=== PATIENT | male | born 1975 | race Caucasian/White ===

== ENCOUNTER 2018-05-30 11:23 | Inpatient (IN) | payer SELFPAY ==
[2018-05-30 12:25] VITALS: BMI 21.2
--- NOTE | 2018-05-30 13:49 | HP ---
COWS - Scale Resting Pulse: 0= [place] 80 or Below Sweatin= Chills/Flushing Restless Observation: 3= Extraneous Movement Pupil Size: 1= Pupils >than Normal Bone or Joint Aches: 2= Severe Diffuse Aches Runny Nose/ Eye Tearin= Runny Nose/Eyes GI Upset > 30mins: 2= Nausea/Diarrhea Tremor Observation: 2= Slight Tremor Visible Yawning Observation: 1= 1-2x During Session Anxiety or Irritability: 2=Irritable/Anxious Goose Flesh Skin: 0=Smooth Skin COWS Score: 16 Admission ROS S - HPI Chief Complaint: i need help to stop using heroin,cocaine,marijuana Allergies/Adverse Reactions: Allergies Allergy/AdvReac Type Severity Reaction Status Date / Time No Known Allergies Allergy Verified 05/30/18 13:39 History of Present Illness: this 43 years old male with heroin,cocaine,marijuana dependence,seeking detox, withdrawal symptom,last treatment in 07/08 [facility] not completed multiple treatment in the past weight loss kidney stone on right s/p surgery in 2017 nicotine dependence no significant period of sobriety Exam Limitations: No Limitations - Ebola screening Have you traveled outside of the country in the last 21 days: No Have you had contact with anyone from an Ebola affected area: No Have you been sick,other than usual withdrawal symptoms: No Do you have a fever: No - Review of Systems Constitutional: Chills, Loss of Appetite, Malaise, Night Sweats, Changes in sleep, Weakness, Unintentional Wgt. Loss EENT: reports: Tearing, Nose Congestion Respiratory: reports: No Symptoms reported Cardiac: reports: No Symptoms Reported GI: reports: Diarrhea, Nausea, Vomiting, Indigestion, Abdominal cramping : reports: No Symptoms Reported Musculoskeletal: reports: Back Pain, Joint Pain, Muscle Pain Integumentary: reports: No Symptoms Reported, Dryness Neuro: reports: Headache, Tremors Endocrine: reports: No Symptoms Reported Hematology: reports: No Symptoms Reported Psychiatric: reports: No Sypmtoms Reported, Judgement Intact, Mood/Affect Appropiate, Orientated x3 Patient History - Patient Medical History Hx Anemia: No Hx Asthma: No Hx Chronic Obstructive Pulmonary Disease (COPD): No Hx Cancer: No Hx Cardiac Disorders: No Hx Congestive Heart Failure: No Hx Hypertension: No Hx Hypercholesterolemia: No Hx Pacemaker: No HX Cerebrovascular Accident: No Hx Seizures: No Hx Dementia: No Hx Diabetes: No Hx Gastrointestinal Disorders: No Hx Liver Disease: No Hx Genitourinary Disorders: No Hx Sexually Transmitted Disorders: No Hx Renal Disease (ESRD): No Hx Thyroid Disease: No Hx Human Immunodeficiency Virus (HIV): No (last 2014 negative) Hx Hepatitis C: No Hx Depression: No Hx Suicide Attempt: No Hx Bipolar Disorder: No Hx Schizophrenia: No Other Medical History: no suicidal,no homicidal - Patient Surgical History Past Surgical History: Yes Hx Genitourinary Surgery: Yes (kidney stone right) Anesthesia Reaction: No - PPD History Previous Implant?: Yes Documented Results: Negative w/o proof Implanted On Prior [facility] Admission?: Yes Date: 07/05/16 PPD to be Administered?: Yes - Smoking Cessation Smoking history: Current every day smoker Have you smoked in the past 12 months: Yes Aproximately how many cigarettes per day: 10 Hx Chewing Tobacco Use: No Initiated information on smoking cessation: Yes 'Breaking Loose' booklet given: 05/30/18 - Substance & Tx. History Hx Alcohol Use: No Hx Substance Use: Yes Substance Use Type: Heroin Hx Substance Use Treatment: Yes ([facility] in 07/08) - Substances Abused Heroin Route: Inhalation Frequency: Daily Amount used: 5 bags Age of first use: 29 Date of Last Use: 05/29/18 Marijuana/Hashish Route: Smoking Frequency: Daily Amount used: 2 joints Age of first use: 17 Date of Last Use: 05/29/18 Cocaine Route: Inhalation Frequency: 1-3 times last 30 days Amount used: $50 Age of first use: 20 Date of Last Use: 05/28/18 Family Disease History - Family Disease History Family History: Denies Admission Physical Exam S - Vital Signs Vital Signs: Vital Signs - 24 hr 05/30/18 12:21 Temperature 97 F L Pulse Rate 55 L Respiratory 17 Rate Blood Pressure 136/91 - Physical General Appearance: Yes: Moderate Distress, Tremorous, Irritable, Sweating, Anxious HEENTM: Yes: Normal ENT Inspection, ANNALEE, Pharynx Normal Respiratory: Yes: Lungs Clear, Normal Breath Sounds, No Respiratory Distress Neck: Yes: Within Normal Limits Breast: Yes: Within Normal Limits Cardiology: Yes: Regular Rhythm, Regular Rate, S1, S2 Abdominal: Yes: Normal Bowel Sounds, Non Tender, Flat, Soft Genitourinary: Yes: Within Normal Limits Back: Yes: Muscle Spasm Musculoskeletal: Yes: Back pain, Joint Stiffness, Muscle Pain Extremities: Yes: Tremors 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, Fully Oriented, Alert, Motor Strength 5/5 Integumentary: Yes: Dry Lymphatic: Yes: Within Normal Limits - Diagnostic (1) Opioid dependence with withdrawal Current Visit: No Status: Chronic (2) Weight loss Current Visit: No Status: Acute (3) Cannabis dependence Current Visit: No Status: Chronic (4) Cocaine dependence Current Visit: No Status: Chronic Qualifiers: Substance use status: uncomplicated Qualified Code(s): F14.20 - Cocaine dependence, uncomplicated (5) Nicotine dependence Current Visit: No Status: Chronic Qualifiers: Nicotine product type: cigarettes Substance use status: uncomplicated Qualified Code(s): F17.210 - Nicotine dependence, cigarettes, uncomplicated Cleared for Admission [facility] - Detox or Rehab [facility] Level of Care: Medically Managed Detox Regimen/Protocol: Methadone [facility] Breath Alcohol Content Breath Alcohol Content: 0 Urine Drug Screen - Results Drug Screen Negative: No Urine Drug Screen Results: THC-Marijuana, DARIAN-Cocaine, OPI-Opiates
[2018-05-30] MEDS ORDERED: ACETAMINOPHEN 325 MG TABLET (FP) PO PRN (13:59)
[2018-05-30] MEDS ORDERED: hydrOXYzine PAMOATE 25 MG CAPSULE (FP) PO PRN (13:59)
[2018-05-30] MEDS ORDERED: MAG HYDROX/AL HYDROX/SIMETH 30 ML UNIT-DOSE CUP PO PRN (13:59)
[2018-05-30] MEDS ORDERED: NICOTINE POLACRILEX 2 MG GUM BUC PRN (13:59)
[2018-05-30] MEDS ORDERED: MENTHOL/PHENOL 1 EACH UD MM PRN (13:59)
[2018-05-30] MEDS ORDERED: IBUPROFEN 400 MG TABLET (FP) PO PRN (13:59)
[2018-05-30] MEDS ORDERED: LOPERAMIDE HCL 2 MG CAPSULE PO PRN (13:59)
[2018-05-30] MEDS ORDERED: guaiFENesin/D-METHORPHAN HB 10 ML UNIT-DOSE CUPS PO PRN (13:59)
[2018-05-30] MEDS ORDERED: MAGNESIUM HYDROX 2400MG/30ML ORAL SUSPENSION 30 ML CUP PO PRN (13:59)
[2018-05-30] MEDS ORDERED: P-EPHED 60MG/TRIPROLIDI 2.5MG TABLET PO PRN (13:59)
[2018-05-30] MEDS ORDERED: MAGNESIUM CITRATE 300 ML BOTTLE PO PRN (13:59)
[2018-05-30] MEDS ORDERED: METHADONE HCL 10 MG TABLET (FOR DETOX USE ONLY) PO ONE ×2 (14:20→23:00)
[2018-05-30] MEDS: diazePAM 5 MG TABLET PO PRN ×2 (15:16→19:30)
[2018-05-30] MEDS: NICOTINE 21 MG/24 HOURS TOPICAL PATCH TD SCH (15:17)
[2018-05-30 17:48] LABS: URINE APPEARANCE CLEAR; URINE BILIRUBIN NEGATIVE (<2.0 mg/dL); URINE COLOR YELLOW; URINE GLUCOSE (UA) NEGATIVE (NEGATIVE); URINE KETONE NEGATIVE (NEGATIVE); URINE LEUK ESTERASE NEGATIVE (NEGATIVE); URINE NITRITE NEGATIVE (NEGATIVE); URINE PROTEIN NEGATIVE (NEGATIVE); URINE UROBILINOGEN NEGATIVE mg/dL (0.2-1.0)
[2018-05-30] MEDS: THIAMINE HCL 100 MG TABLET (FP) PO SCH (22:17)
[2018-05-30] MEDS: MELATONIN 5 MG TABLETS PO PRN (22:18)
[2018-05-31] MEDS: diazePAM 5 MG TABLET PO PRN ×4 (05:46→19:51)
[2018-05-31] MEDS ORDERED: METHADONE HCL 10 MG TABLET (FOR DETOX USE ONLY) PO ONE (10:00)
[2018-05-31] MEDS: NICOTINE 21 MG/24 HOURS TOPICAL PATCH TD SCH (10:27)
[2018-05-31] MEDS: PRENATAL VITAMINS W/ FOLIC ACID TABLET (FP) PO SCH (10:27)
[2018-05-31 11:19] LABS: HEMATOCRIT 43.4 % (35.4-49); HEMOGLOBIN 14.4 GM/dL (11.7-16.9); MCH 30.9 pg (25.7-33.7); MCHC 33.1 g/dl (32.0-35.9); MEAN CELL VOLUME 93.5 fl (80-96); MEAN PLT VOLUME 8.8 fl (7.5-11.1); PLATELET COUNT 262 K/MM3 (134-434); RBC 4.64 M/mm3 (4.00-5.60); RDW 13.4 % (11.9-15.9); WHITE BLOOD COUNT 8.9 K/mm3 (4.0-10.0)
[2018-05-31 11:23] LABS: ALBUMIN 4.1 g/dl (3.4-5.0); ALK PHOS 74 U/L (45-117); ANION GAP 5 MMOL/L (8-16); BILIRUBIN,TOTAL 0.3 mg/dL (0.2-1); BLOOD UREA NITROGEN 15 mg/dL (7-18); CALCIUM 9.7 mg/dL (8.5-10.1); CHLORIDE 107 mmol/L (98-107); CO2 29 mmol/L (21-32); GLUCOSE,RANDOM 76 mg/dL (74-106); POTASSIUM 5.3 mmol/L (3.5-5.1); SGOT/AST 16 U/L (15-37); SGPT/ALT 25 U/L (13-61); SODIUM 141 mmol/L (136-145); TOT PROT 7.8 g/dl (6.4-8.2)
--- NOTE | 2018-05-31 11:49 | EKG ---
Test Reason : Blood Pressure : / mmHG Vent. Rate : 047 BPM Atrial Rate : 047 BPM P-R Int : 150 ms QRS Dur : 098 ms QT Int : 464 ms P-R-T Axes : 054 052 071 degrees QTc Int : 410 ms SINUS BRADYCARDIA WITH SINUS ARRHYTHMIA OTHERWISE NORMAL ECG NO PREVIOUS ECGS AVAILABLE Confirmed by Ino Lucas MD ([id number]) on 05/31/2018 11:48:19 AM Referred By: Confirmed By:Ino Lucas MD
--- NOTE | 2018-05-31 15:37 | PN ---
[facility] COWS - Scale Resting Pulse: 0= [place] 80 or Below Sweatin= Chills/Flushing Restless Observation: 3= Extraneous Movement Pupil Size: 1= Pupils >than Normal Bone or Joint Aches: 2= Severe Diffuse Aches Runny Nose/ Eye Tearin= Runny Nose/Eyes GI Upset > 30mins: 3= Vomiting/Diarrhea Tremor Observation of Outstretched Hands: 2= Slight Tremor Visible Yawning Observation: 1= 1-2x During Session Anxiety or Irritability: 2=Irritable/Anxious Goose Flesh Skin: 0=Smooth Skin COWS Score: 17 S Progress Note (SOAP) Subjective: Chills, interrupted sleep, sweating Objective: 05/31/18 15:32 Last Vital Signs Temp Pulse Resp BP Pulse Ox 97.8 F 61 18 131/87 05/31/18 14:19 05/31/18 14:19 05/31/18 14:19 05/31/18 14:19 Laboratory Tests 05/30/18 05/31/18 05/31/18 15:30 06:00 06:00 WBC 8.9 RBC 4.64 Hgb 14.4 Hct 43.4 MCV 93.5 MCH 30.9 MCHC 33.1 RDW 13.4 Plt Count 262 MPV 8.8 Sodium 141 Potassium 5.3 H Chloride 107 Carbon Dioxide 29 Anion Gap 5 L BUN 15 Creatinine 1.0 Creat Clearance w eGFR > 60 Random Glucose 76 Calcium 9.7 Total Bilirubin 0.3 AST 16 ALT 25 Alkaline Phosphatase 74 Total Protein 7.8 Albumin 4.1 Urine Color Yellow Urine Appearance Clear Urine pH 6.0 Ur Specific [place] 1.024 Urine Protein Negative Urine Glucose (UA) Negative Urine Ketones Negative Urine Blood Negative Urine Nitrite Negative Urine Bilirubin Negative Urine Urobilinogen Negative Ur Leukocyte Esterase Negative RPR Titer 05/31/18 06:00 WBC RBC Hgb Hct MCV MCH MCHC RDW Plt Count MPV Sodium Potassium Chloride Carbon Dioxide Anion Gap BUN Creatinine Creat Clearance w eGFR Random Glucose Calcium Total Bilirubin AST ALT Alkaline Phosphatase Total Protein Albumin Urine Color Urine Appearance Urine pH Ur Specific [place] Urine Protein Urine Glucose (UA) Urine Ketones Urine Blood Urine Nitrite Urine Bilirubin Urine Urobilinogen Ur Leukocyte Esterase RPR Titer Nonreactive Labs reviewed: Rebekah 5.3 Assessment: 05/31/18 15:33 Withdrawal sxs Noted with mild hyperkalemia Plan: Continue detox Hyperkalemia: kayexalate 15g PO x 1 dose, repeat serum K level in AM
[2018-05-31] MEDS ORDERED: SODIUM POLYSTYRENE SULFONATE 15 GM/60 ML BOTTLE PO ONE (16:15)
[2018-05-31] MEDS: MELATONIN 5 MG TABLETS PO PRN (22:50)
[2018-05-31] MEDS: THIAMINE HCL 100 MG TABLET (FP) PO SCH (22:50)
[2018-06-01] MEDS: diazePAM 5 MG TABLET PO PRN ×3 (06:27→19:18)
[2018-06-01] MEDS: NICOTINE 21 MG/24 HOURS TOPICAL PATCH TD SCH (09:23)
[2018-06-01] MEDS: PRENATAL VITAMINS W/ FOLIC ACID TABLET (FP) PO SCH (09:32)
[2018-06-01] MEDS ORDERED: METHADONE HCL 5 MG TABLET (FOR DETOX USE ONLY) PO ONE (10:00)
--- NOTE | 2018-06-01 14:57 | PN ---
S COWS - Scale Resting Pulse: 1= [place] 81-100 Sweatin= Chills/Flushing Restless Observation: 3= Extraneous Movement Pupil Size: 0= Normal to Room Light Bone or Joint Aches: 2= Severe Diffuse Aches Runny Nose/ Eye Tearin= Runny Nose/Eyes GI Upset > 30mins: 2= Nausea/Diarrhea Tremor Observation of Outstretched Hands: 2= Slight Tremor Visible Yawning Observation: 1= 1-2x During Session Anxiety or Irritability: 1=Feels Anxious/Irritable Goose Flesh Skin: 0=Smooth Skin COWS Score: 15 S Progress Note (SOAP) Subjective: Anxious, sweating, interrupted sleep Objective: 06/01/18 14:54 Last Vital Signs Temp Pulse Resp BP Pulse Ox 97.8 F 84 18 136/89 06/01/18 13:39 06/01/18 13:39 06/01/18 13:39 06/01/18 13:39 Laboratory Tests 05/30/18 05/31/18 05/31/18 15:30 06:00 06:00 WBC 8.9 RBC 4.64 Hgb 14.4 Hct 43.4 MCV 93.5 MCH 30.9 MCHC 33.1 RDW 13.4 Plt Count 262 MPV 8.8 Sodium 141 Potassium 5.3 H Chloride 107 Carbon Dioxide 29 Anion Gap 5 L BUN 15 Creatinine 1.0 Creat Clearance w eGFR > 60 Random Glucose 76 Calcium 9.7 Total Bilirubin 0.3 AST 16 ALT 25 Alkaline Phosphatase 74 Total Protein 7.8 Albumin 4.1 Urine Color Yellow Urine Appearance Clear Urine pH 6.0 Ur Specific [place] 1.024 Urine Protein Negative Urine Glucose (UA) Negative Urine Ketones Negative Urine Blood Negative Urine Nitrite Negative Urine Bilirubin Negative Urine Urobilinogen Negative Ur Leukocyte Esterase Negative RPR Titer 05/31/18 06/01/18 06:00 07:30 WBC RBC Hgb Hct MCV MCH MCHC RDW Plt Count MPV Sodium Potassium 4.2 Chloride Carbon Dioxide Anion Gap BUN Creatinine Creat Clearance w eGFR Random Glucose Calcium Total Bilirubin AST ALT Alkaline Phosphatase Total Protein Albumin Urine Color Urine Appearance Urine pH Ur Specific [place] Urine Protein Urine Glucose (UA) Urine Ketones Urine Blood Urine Nitrite Urine Bilirubin Urine Urobilinogen Ur Leukocyte Esterase RPR Titer Nonreactive Labs reviewed: repeated K value 4.2 (was 5.3) Assessment: 06/01/18 14:55 Withdrawal sxs Plan: Continue detox Hyperkalemia resolved after kayexalate 15gm PO x 1 dose yesterday
[2018-06-01] MEDS: MELATONIN 5 MG TABLETS PO PRN (22:34)
[2018-06-01] MEDS: THIAMINE HCL 100 MG TABLET (FP) PO SCH (22:34)
[2018-06-02] MEDS: diazePAM 5 MG TABLET PO PRN ×2 (06:52→11:02)
[2018-06-02] MEDS ORDERED: METHADONE HCL 5 MG TABLET (FOR DETOX USE ONLY) PO ONE (10:00)
[2018-06-02] MEDS: NICOTINE 21 MG/24 HOURS TOPICAL PATCH TD SCH (10:43)
[2018-06-02] MEDS: PRENATAL VITAMINS W/ FOLIC ACID TABLET (FP) PO SCH (10:43)
[2018-06-02 13:18] VITALS: BP 133/91; PULSE 79; TEMP 96.7
--- NOTE | 2018-06-02 15:23 | DS ---
[facility] Detox Discharge Summary Admission Date: 05/30/18 Discharge Date: 06/02/18 - History Present History: Cannabis Dependence, Cocaine Dependence, Opioid Dependence Additional Comments: Patient encouraged to complete detox. Cytopathologist discussed with patient about adjusting his detox protocol so that he could leave tomorrow instead of leaving AMA today. As per patient, he has a job and he has to leave today and doesn't care. Patient stated he is feeling fine and doesn't have any withdrawal sxs. Patient instructed to proceed to ER stat if any withdrawal sxs and to follow up with his PCP within 3 days. Pertinent Past History: Denies - Physical Exam Results Vital Signs: Vital Signs Temperature 96.7 F L 06/02/18 13:17 Pulse Rate 79 06/02/18 13:17 Respiratory Rate 18 06/02/18 13:17 Blood Pressure 133/91 06/02/18 13:17 O2 Sat by Pulse Oximetry (%) Pertinent Admission Physical Exam Findings: Withdrawal sxs Laboratory Tests 05/30/18 05/31/18 05/31/18 15:30 06:00 06:00 WBC 8.9 RBC 4.64 Hgb 14.4 Hct 43.4 MCV 93.5 MCH 30.9 MCHC 33.1 RDW 13.4 Plt Count 262 MPV 8.8 Sodium 141 Potassium 5.3 H Chloride 107 Carbon Dioxide 29 Anion Gap 5 L BUN 15 Creatinine 1.0 Creat Clearance w eGFR > 60 Random Glucose 76 Calcium 9.7 Total Bilirubin 0.3 AST 16 ALT 25 Alkaline Phosphatase 74 Total Protein 7.8 Albumin 4.1 Urine Color Yellow Urine Appearance Clear Urine pH 6.0 Ur Specific [place] 1.024 Urine Protein Negative Urine Glucose (UA) Negative Urine Ketones Negative Urine Blood Negative Urine Nitrite Negative Urine Bilirubin Negative Urine Urobilinogen Negative Ur Leukocyte Esterase Negative RPR Titer 05/31/18 06/01/18 06:00 07:30 WBC RBC Hgb Hct MCV MCH MCHC RDW Plt Count MPV Sodium Potassium 4.2 Chloride Carbon Dioxide Anion Gap BUN Creatinine Creat Clearance w eGFR Random Glucose Calcium Total Bilirubin AST ALT Alkaline Phosphatase Total Protein Albumin Urine Color Urine Appearance Urine pH Ur Specific [place] Urine Protein Urine Glucose (UA) Urine Ketones Urine Blood Urine Nitrite Urine Bilirubin Urine Urobilinogen Ur Leukocyte Esterase RPR Titer Nonreactive Labs reviewed - Treatment Hospital Course: Detox Protocol Followed, Detoxed Safely, Responded well, Discharged Condition Good - Medication Discharge Medications: Ambulatory Orders NK [No Known Home Medication] 07/03/16 - Diagnosis (1) Cannabis dependence Status: Chronic (2) Cocaine dependence Status: Chronic Qualifiers: Substance use status: uncomplicated Qualified Code(s): F14.20 - Cocaine dependence, uncomplicated (3) Nicotine dependence Status: Chronic Qualifiers: Nicotine product type: cigarettes Substance use status: uncomplicated Qualified Code(s): F17.210 - Nicotine dependence, cigarettes, uncomplicated (4) Opioid dependence with withdrawal Status: Acute - AMA Did Patient Leave Against Medical Advice: Yes (F/U with your PCP within 1-2 weeks)
[2018-06-03] MEDS ORDERED: METHADONE HCL 10 MG TABLET (FOR DETOX USE ONLY) PO ONE (10:00)
[2018-06-04] MEDS ORDERED: METHADONE HCL 5 MG TABLET (FOR DETOX USE ONLY) PO ONE (06:00)
== END 2018-06-02 13:59 | disposition left against medical advice (07) | DRG 770 ==
LOC: YASAS 11:23 → Y6N 13:58 → Y3N 14:52
PROC: HZ2ZZZZ Detoxification Services for Substance Abuse Treatment (ICD-10-PCS; principal; 2018-05-30)
DX: F11.23 Opioid dependence with withdrawal (principal); F14.20 Cocaine dependence, uncomplicated; F12.20 Cannabis dependence, uncomplicated; F17.210 Nicotine dependence, cigarettes, uncomplicated; E87.5 Hyperkalemia; Z87.898 Personal history of other specified conditions; Z59.0 Homelessness
CPT/HCPCS: 36415; 80053; 81003; 84132; 85027; 86593; 93005; 93010

== ENCOUNTER 2018-12-18 10:37 | Inpatient (IN) | payer OTHER ==
[2018-12-18 12:48] VITALS: BMI 23.7
--- NOTE | 2018-12-18 15:52 | HP ---
COWS - Scale Resting Pulse: 0= [place] 80 or Below Sweatin= Chills/Flushing Restless Observation: 3= Extraneous Movement Pupil Size: 1= Pupils >than Normal Bone or Joint Aches: 2= Severe Diffuse Aches Runny Nose/ Eye Tearin= Runny Nose/Eyes GI Upset > 30mins: 2= Nausea/Diarrhea Tremor Observation: 2= Slight Tremor Visible Yawning Observation: 2= >3x During Session Anxiety or Irritability: 2=Irritable/Anxious Goose Flesh Skin: 0=Smooth Skin COWS Score: 17 CIWA Score - Admission Criteria [facility] Guidelines: Admission for Medically Managed Detox: Requires at least one of the followin. CIWA greater than 12 2. Seizures within the past 24 hours 3. Delirium tremens within the past 24 hours 4. Hallucinations within the past 24 hours 5. Acute intervention needed for co occurring medical disorder 6. Acute intervention needed for co occurring psychiatric disorder 7. Severe withdrawal that cannot be handled at a lower level of care (continued vomiting, continued diarrhea, abnormal vital signs) requiring intravenous medication and/or fluids 8. Admission ROS [facility] Chief Complaint: i need help to stop using heroin,cocaine and marijuana Allergies/Adverse Reactions: Allergies Allergy/AdvReac Type Severity Reaction Status Date / Time No Known Allergies Allergy Verified 12/18/18 12:43 History of Present Illness: this 43 years old with heroin,cocaine and marijuana dependence,seeking detox, withdrawal symptom multiple admissions in the past,last [facility] 05/30/13 to 06/02/18 not cpmpleted nicotine dependence 1/2 pack weight loss longest period of sobriety 8 months plan for out patient program and back to work Exam Limitations: No Limitations - Ebola screening Have you traveled outside of the country in the last 21 days: No (N) Have you had contact with anyone from an Ebola affected area: No Do you have a fever: No - Review of Systems Constitutional: Chills, Loss of Appetite, Malaise, Night Sweats, Changes in sleep, Weakness, Unintentional Wgt. Loss EENT: reports: Tearing, Nose Congestion Respiratory: reports: No Symptoms reported Cardiac: reports: No Symptoms Reported GI: reports: Nausea, Poor Appetite, Indigestion, Abdominal cramping : reports: No Symptoms Reported Musculoskeletal: reports: Back Pain, Muscle Pain Neuro: reports: Headache, Tremors Endocrine: reports: No Symptoms Reported Hematology: reports: No Symptoms Reported Psychiatric: reports: No Sypmtoms Reported, Judgement Intact, Mood/Affect Appropiate, Orientated x3 Other Systems: Reviewed and Negative Patient History - Patient Medical History Hx Anemia: No Hx Asthma: No Hx Chronic Obstructive Pulmonary Disease (COPD): No Hx Cancer: No Hx Cardiac Disorders: No Hx Congestive Heart Failure: No Hx Hypertension: No Hx Hypercholesterolemia: No Hx Pacemaker: No HX Cerebrovascular Accident: No Hx Seizures: No Hx Dementia: No Hx Diabetes: No Hx Gastrointestinal Disorders: No Hx Liver Disease: No Hx Genitourinary Disorders: No Hx Sexually Transmitted Disorders: No Hx Renal Disease (ESRD): No Hx Thyroid Disease: No Hx Human Immunodeficiency Virus (HIV): No (last 2014 negative) Hx Hepatitis C: No Hx Depression: No Hx Suicide Attempt: No (DENIES) Hx Bipolar Disorder: No Hx Schizophrenia: No Other Medical History: no suicidal,no homicidal - Patient Surgical History Past Surgical History: Yes Hx Neurologic Surgery: No Hx Cataract Extraction: No Hx Cardiac Surgery: No Hx Lung Surgery: No Hx Breast Surgery: No Hx Breast Biopsy: No Hx Abdominal Surgery: No Hx Appendectomy: No Hx Cholecystectomy: No Hx Genitourinary Surgery: Yes (kidney stone right in 2016) Hx Section: No Hx Orthopedic Surgery: No Anesthesia Reaction: No - PPD History Previous Implant?: Yes Documented Results: Negative w/proof Implanted On Prior R Admission?: Yes Date: 06/01/18 Results: 0MM - Reproductive History Patient : No - Smoking Cessation Smoking history: Current every day smoker Have you smoked in the past 12 months: Yes Aproximately how many cigarettes per day: 10 Hx Chewing Tobacco Use: No Initiated information on smoking cessation: Yes 'Breaking Loose' booklet given: 12/18/18 - Substance & Tx. History Hx Alcohol Use: No Hx Substance Use: Yes Substance Use Type: Cocaine, Heroin, Marijuana Hx Substance Use Treatment: Yes ([facility] 05/30/18 to 06/02/18 not completed) - Substances abused Heroin Substance route: Inhalation Frequency: Daily Amount used: 1-5 BAGS Age of first use: 29 Date of last use: 12/17/18 Cocaine Other (specify): sniff Frequency: 1-2 times per week Amount used: 20$ Age of first use: 20 Date of last use: 12/16/18 Marijuana/Hashish Substance route: Smoking Frequency: Daily Amount used: 10& Age of first use: 17 Date of last use: 12/18/18 Family Disease History - Family Disease History Family History: Denies Admission Physical Exam [facility] - Vital Signs Vital Signs: Vital Signs - 24 hr 12/18/18 12/18/18 12/18/18 12:44 13:27 15:15 Temperature 97.6 F 97.6 F 97.6 F Pulse Rate 69 69 69 Respiratory 20 20 20 Rate Blood Pressure 133/81 133/81 133/81 - Physical General Appearance: Yes: Moderate Distress, Tremorous, Irritable, Sweating, Anxious HEENTM: Yes: Normal ENT Inspection, ANNALEE, Pharynx Normal Respiratory: Yes: Lungs Clear, Normal Breath Sounds, No Respiratory Distress Neck: Yes: Within Normal Limits, Supple, Trachea in good position Breast: Yes: Within Normal Limits Cardiology: Yes: Within Normal Limits, Regular Rhythm, Regular Rate, S1, S2 Abdominal: Yes: Within Normal Limits, Normal Bowel Sounds, Non Tender, Soft Genitourinary: Yes: Within Normal Limits, Other (scar of right lumbar area) Back: Yes: Muscle Spasm Musculoskeletal: Yes: full range of Motion, Back pain, Muscle Pain Extremities: Yes: Tremors Neurological: Yes: Within Normal Limits, Alert, Motor Strength 5/5 Integumentary: Yes: Dry Lymphatic: Yes: Within Normal Limits - Diagnostic (1) Opioid dependence with withdrawal Current Visit: No Status: Acute (2) Weight loss Current Visit: No Status: Acute (3) Cannabis dependence Current Visit: No Status: Chronic (4) Cocaine dependence Current Visit: No Status: Chronic Qualifiers: Substance use status: uncomplicated Qualified Code(s): F14.20 - Cocaine dependence, uncomplicated (5) Nicotine dependence Current Visit: No Status: Chronic Qualifiers: Nicotine product type: cigarettes Substance use status: uncomplicated Qualified Code(s): F17.210 - Nicotine dependence, cigarettes, uncomplicated (6) Kidney stone on right side Current Visit: Yes Status: Acute Cleared for Admission [facility] - Detox or Rehab [facility] Level of Care: Medically Managed Detox Regimen/Protocol: Methadone Breathalyzer - Breathalyzer Breathalyzer: 0 Urine Drug Screen - Test Device Lot number: [id number] Expiration date: 07/22/20 - Control Is test valid?: Yes - Results Drug screen NEGATIVE: No Urine drug screen results: THC-Marijuana, DARIAN-Cocaine, FEN-Fentanyl, MOP-Opiates Inpatient Rehab Admission - Rehab Decision to Admit Inpatient rehab admission?: No
[2018-12-18] MEDS ORDERED: MAG HYDROX/AL HYDROX/SIMETH 30 ML UNIT-DOSE CUP PO PRN (15:57)
[2018-12-18] MEDS ORDERED: IBUPROFEN 400 MG TABLET (FP) PO PRN (15:57)
[2018-12-18] MEDS ORDERED: METHOCARBAMOL 500 MG TABLET PO PRN (15:57)
[2018-12-18] MEDS ORDERED: BISMUTH SUBSALICYLATE 524 MG/30 ML UD PO PRN (15:57)
[2018-12-18] MEDS ORDERED: MAGNESIUM HYDROX 2400MG/30ML ORAL SUSPENSION 30 ML CUP PO PRN (15:57)
[2018-12-18] MEDS ORDERED: MENTHOL/PHENOL 1 EACH UD MM PRN (15:57)
[2018-12-18] MEDS ORDERED: MAGNESIUM CITRATE 300 ML BOTTLE PO PRN (15:57)
[2018-12-18] MEDS ORDERED: hydrOXYzine PAMOATE 25 MG CAPSULE (FP) PO PRN (15:57)
[2018-12-18] MEDS ORDERED: ACETAMINOPHEN 325 MG TABLET (FP) PO PRN ×2 (15:57)
[2018-12-18] MEDS ORDERED: METHADONE HCL 10 MG TABLET (FOR DETOX USE ONLY) PO ONE ×2 (16:01→23:00)
[2018-12-18] MEDS: NICOTINE 21 MG/24 HOURS TOPICAL PATCH TD SCH (16:45)
[2018-12-18] MEDS: diazePAM 5 MG TABLET PO PRN ×2 (16:45→22:05)
[2018-12-18] MEDS: THIAMINE HCL 100 MG TABLET (FP) PO SCH (22:05)
[2018-12-18] MEDS: MELATONIN 5 MG TABLETS PO PRN (22:07)
[2018-12-19 03:20] LABS: PH,URINE 5.5 (5.0-8.0); URINE APPEARANCE CLEAR; URINE BILIRUBIN NEGATIVE (NEGATIVE); URINE COLOR YELLOW; URINE GLUCOSE (UA) NEGATIVE (NEGATIVE); URINE KETONE NEGATIVE (NEGATIVE); URINE LEUK ESTERASE NEGATIVE (NEGATIVE); URINE NITRITE NEGATIVE (NEGATIVE); URINE PROTEIN NEGATIVE (NEGATIVE); URINE UROBILINOGEN 0.2 mg/dL (0.2-1.0)
[2018-12-19] MEDS: diazePAM 5 MG TABLET PO PRN ×5 (05:48→23:18)
--- NOTE | 2018-12-19 09:47 | PN ---
[facility] COWS - Scale Resting Pulse: 1= [place] 81-100 Sweatin= Chills/Flushing Restless Observation: 1= Difficult to Sit Still Pupil Size: 1= Pupils >than Normal Bone or Joint Aches: 1= Mild Discomfort Runny Nose/ Eye Tearin= Nasal Congestion GI Upset > 30mins: 2= Nausea/Diarrhea Tremor Observation of Outstretched Hands: 1= Tremor [place], Not Seen Yawning Observation: 1= 1-2x During Session Anxiety or Irritability: 1=Feels Anxious/Irritable Goose Flesh Skin: 3=Piloerection COWS Score: 14 S Progress Note (SOAP) Subjective: limited toleration to food and fluid trouble sleep at night restlessness ensure 120 ml bid Objective: 12/19/18 09:45 Vital Signs Temperature 96.7 F L 12/19/18 09:14 Pulse Rate 85 12/19/18 09:14 Respiratory Rate 18 12/19/18 09:14 Blood Pressure 131/84 12/19/18 09:14 O2 Sat by Pulse Oximetry (%) Laboratory Last Values Urine Color Yellow 12/18/18 22:58 Urine Appearance Clear 12/18/18 22:58 Urine pH 5.5 (5.0-8.0) 12/18/18 22:58 Ur Specific [place] 1.015 (1.010-1.035) 12/18/18 22:58 Urine Protein Negative (NEGATIVE) 12/18/18 22:58 Urine Glucose (UA) Negative (NEGATIVE) 12/18/18 22:58 Urine Ketones Negative (NEGATIVE) 12/18/18 22:58 Urine Blood Negative (NEGATIVE) 12/18/18 22:58 Urine Nitrite Negative (NEGATIVE) 12/18/18 22:58 Urine Bilirubin Negative (NEGATIVE) 12/18/18 22:58 Urine Urobilinogen 0.2 mg/dL (0.2-1.0) 12/18/18 22:58 Ur Leukocyte Esterase Negative (NEGATIVE) 12/18/18 22:58 lab noted Assessment: 12/19/18 09:46 opiate withdrawal sx Plan: continue detox
[2018-12-19] MEDS ORDERED: METHADONE HCL 5 MG TABLET (FOR DETOX USE ONLY) PO ONE (10:00)
[2018-12-19 10:07] LABS: ALBUMIN 3.4 g/dl (3.4-5.0); ALK PHOS 69 U/L (45-117); ANION GAP 5 MMOL/L (8-16); BILIRUBIN,TOTAL 0.2 mg/dL (0.2-1); BLOOD UREA NITROGEN 13 mg/dL (7-18); CALCIUM 8.5 mg/dL (8.5-10.1); CHLORIDE 108 mmol/L (98-107); CO2 28 mmol/L (21-32); CREATININE 0.9 mg/dL (0.55-1.3); GLUCOSE,RANDOM 86 mg/dL (74-106); POTASSIUM 4.4 mmol/L (3.5-5.1); SGOT/AST 9 U/L (15-37); SGPT/ALT 18 U/L (13-61); SODIUM 141 mmol/L (136-145); TOT PROT 6.5 g/dl (6.4-8.2)
[2018-12-19] MEDS: NICOTINE 21 MG/24 HOURS TOPICAL PATCH TD SCH (10:15)
[2018-12-19] MEDS: cloNIDine HCL 0.1 MG TABLET PO PRN ×2 (10:16→23:18)
[2018-12-19] MEDS: NICOTINE POLACRILEX 2 MG GUM BUC PRN ×4 (10:17→23:19)
[2018-12-19] MEDS: PRENATAL VITAMINS W/ FOLIC ACID TABLET (FP) PO SCH (10:17)
[2018-12-19 10:31] LABS: HEMATOCRIT 40.3 % (35.4-49); HEMOGLOBIN 14.1 GM/dL (11.7-16.9); MCHC 34.9 g/dl (32.0-35.9); MEAN CELL VOLUME 94.5 fl (80-96); MEAN PLT VOLUME 8.9 fl (7.5-11.1); PLATELET COUNT 250 K/MM3 (134-434); RBC 4.26 M/mm3 (4.00-5.60); RDW 13.3 % (11.9-15.9); WHITE BLOOD COUNT 6.8 K/mm3 (4.0-10.0)
[2018-12-19] MEDS: THIAMINE HCL 100 MG TABLET (FP) PO SCH (23:14)
[2018-12-19] MEDS: MELATONIN 5 MG TABLETS PO PRN (23:18)
[2018-12-20] MEDS ORDERED: METHADONE HCL 10 MG TABLET (FOR DETOX USE ONLY) PO ONE (10:00)
[2018-12-20] MEDS: diazePAM 5 MG TABLET PO PRN (10:25)
[2018-12-20] MEDS: NICOTINE 21 MG/24 HOURS TOPICAL PATCH TD SCH (10:26)
[2018-12-20] MEDS: NICOTINE POLACRILEX 2 MG GUM BUC PRN (10:26)
[2018-12-20] MEDS: PRENATAL VITAMINS W/ FOLIC ACID TABLET (FP) PO SCH (10:26)
--- NOTE | 2018-12-20 11:56 | PN ---
BHS COWS - Scale Resting Pulse: 0= [place] 80 or Below Sweatin= Chills/Flushing Restless Observation: 0= Sits Still Pupil Size: 0= Normal to Room Light Bone or Joint Aches: 1= Mild Discomfort Runny Nose/ Eye Tearin= Nasal Congestion GI Upset > 30mins: 1= Stomach Cramp Tremor Observation of Outstretched Hands: 1= Tremor [place], Not Seen Yawning Observation: 2= >3x During Session Anxiety or Irritability: 1=Feels Anxious/Irritable Goose Flesh Skin: 0=Smooth Skin COWS Score: 8 BHS Progress Note (SOAP) Subjective: patient reporting that he is going back to work tomorrow and his is living with his parents both are supportive to him patient wants to go to out patient rehab facility for better coping toward addiction discuss methadone and suboxone maintenance program patient "I do not think so" patient wants to "cut everything away" Objective: 12/20/18 13:02 Vital Signs Temperature 97 F L 12/20/18 09:15 Pulse Rate 73 12/20/18 09:15 Respiratory Rate 18 12/20/18 09:15 Blood Pressure 124/83 12/20/18 09:15 O2 Sat by Pulse Oximetry (%) Laboratory Last Values WBC 6.8 K/mm3 (4.0-10.0) 12/19/18 07:00 RBC 4.26 M/mm3 (4.00-5.60) 12/19/18 07:00 Hgb 14.1 GM/dL (11.7-16.9) 12/19/18 07:00 Hct 40.3 % (35.4-49) 12/19/18 07:00 MCV 94.5 fl (80-96) 12/19/18 07:00 MCH 33.0 pg (25.7-33.7) 12/19/18 07:00 MCHC 34.9 g/dl (32.0-35.9) 12/19/18 07:00 RDW 13.3 % (11.9-15.9) 12/19/18 07:00 Plt Count 250 K/MM3 (134-434) 12/19/18 07:00 MPV 8.9 fl (7.5-11.1) 12/19/18 07:00 Sodium 141 mmol/L (136-145) 12/19/18 07:00 Potassium 4.4 mmol/L (3.5-5.1) 12/19/18 07:00 Chloride 108 mmol/L (98-107) H 12/19/18 07:00 Carbon Dioxide 28 mmol/L (21-32) 12/19/18 07:00 Anion Gap 5 MMOL/L (8-16) L 12/19/18 07:00 BUN 13 mg/dL (7-18) 12/19/18 07:00 Creatinine 0.9 mg/dL (0.55-1.3) 12/19/18 07:00 Creat Clearance w eGFR 91.67 (>60) 12/19/18 07:00 Random Glucose 86 mg/dL (74-106) 12/19/18 07:00 Calcium 8.5 mg/dL (8.5-10.1) 12/19/18 07:00 Total Bilirubin 0.2 mg/dL (0.2-1) 12/19/18 07:00 AST 9 U/L (15-37) L 12/19/18 07:00 ALT 18 U/L (13-61) 12/19/18 07:00 Alkaline Phosphatase 69 U/L (45-117) 12/19/18 07:00 Total Protein 6.5 g/dl (6.4-8.2) 12/19/18 07:00 Albumin 3.4 g/dl (3.4-5.0) 12/19/18 07:00 Urine Color Yellow 12/18/18 22:58 Urine Appearance Clear 12/18/18 22:58 Urine pH 5.5 (5.0-8.0) 12/18/18 22:58 Ur Specific [place] 1.015 (1.010-1.035) 12/18/18 22:58 Urine Protein Negative (NEGATIVE) 12/18/18 22:58 Urine Glucose (UA) Negative (NEGATIVE) 12/18/18 22:58 Urine Ketones Negative (NEGATIVE) 12/18/18 22:58 Urine Blood Negative (NEGATIVE) 12/18/18 22:58 Urine Nitrite Negative (NEGATIVE) 12/18/18 22:58 Urine Bilirubin Negative (NEGATIVE) 12/18/18 22:58 Urine Urobilinogen 0.2 mg/dL (0.2-1.0) 12/18/18 22:58 Ur Leukocyte Esterase Negative (NEGATIVE) 12/18/18 22:58 RPR Titer Nonreactive (NONREACTIVE) 12/19/18 07:00 HIV 1&2 Antibody Screen Negative 12/19/18 07:00 HIV P24 Antigen Negative 12/19/18 07:00 lab noted Assessment: 12/20/18 13:02 opiate withdrawal sx Plan: continue detox
[2018-12-20 14:07] VITALS: BP 128/90; PULSE 98; TEMP 98.3
--- NOTE | 2018-12-20 14:44 | DS ---
[facility] Detox Discharge Summary Admission Date: 12/18/18 Discharge Date: 12/20/18 - History Present History: Opioid Dependence Additional Comments: 43 years old male admitted on 12/18/18 for opiate withdrawal stabilization after napping and lunch feeling better wants to return home to his parents and begin to work tomorrow alert no acute distress denies suicidal ideation patient does not want to consider methadone nor suboxone program discuss narcan kit "no I do not need that" Pertinent Past History: bring in medication list and lab report to aftercare appointment strong recommend to the patient not to leave with [id number] together patient choose to leave with [id number] - Physical Exam Results Vital Signs: Vital Signs Temperature 98.3 F 12/20/18 14:05 Pulse Rate 98 H 12/20/18 14:05 Respiratory Rate 18 12/20/18 14:05 Blood Pressure 128/90 12/20/18 14:05 O2 Sat by Pulse Oximetry (%) Pertinent Admission Physical Exam Findings: opiate withdrawal sx Laboratory Last Values WBC 6.8 K/mm3 (4.0-10.0) 12/19/18 07:00 RBC 4.26 M/mm3 (4.00-5.60) 12/19/18 07:00 Hgb 14.1 GM/dL (11.7-16.9) 12/19/18 07:00 Hct 40.3 % (35.4-49) 12/19/18 07:00 MCV 94.5 fl (80-96) 12/19/18 07:00 MCH 33.0 pg (25.7-33.7) 12/19/18 07:00 MCHC 34.9 g/dl (32.0-35.9) 12/19/18 07:00 RDW 13.3 % (11.9-15.9) 12/19/18 07:00 Plt Count 250 K/MM3 (134-434) 12/19/18 07:00 MPV 8.9 fl (7.5-11.1) 12/19/18 07:00 Sodium 141 mmol/L (136-145) 12/19/18 07:00 Potassium 4.4 mmol/L (3.5-5.1) 12/19/18 07:00 Chloride 108 mmol/L (98-107) H 12/19/18 07:00 Carbon Dioxide 28 mmol/L (21-32) 12/19/18 07:00 Anion Gap 5 MMOL/L (8-16) L 12/19/18 07:00 BUN 13 mg/dL (7-18) 12/19/18 07:00 Creatinine 0.9 mg/dL (0.55-1.3) 12/19/18 07:00 Creat Clearance w eGFR 91.67 (>60) 12/19/18 07:00 Random Glucose 86 mg/dL (74-106) 12/19/18 07:00 Calcium 8.5 mg/dL (8.5-10.1) 12/19/18 07:00 Total Bilirubin 0.2 mg/dL (0.2-1) 12/19/18 07:00 AST 9 U/L (15-37) L 12/19/18 07:00 ALT 18 U/L (13-61) 12/19/18 07:00 Alkaline Phosphatase 69 U/L (45-117) 12/19/18 07:00 Total Protein 6.5 g/dl (6.4-8.2) 12/19/18 07:00 Albumin 3.4 g/dl (3.4-5.0) 12/19/18 07:00 Urine Color Yellow 12/18/18 22:58 Urine Appearance Clear 12/18/18 22:58 Urine pH 5.5 (5.0-8.0) 12/18/18 22:58 Ur Specific [place] 1.015 (1.010-1.035) 12/18/18 22:58 Urine Protein Negative (NEGATIVE) 12/18/18 22:58 Urine Glucose (UA) Negative (NEGATIVE) 12/18/18 22:58 Urine Ketones Negative (NEGATIVE) 12/18/18 22:58 Urine Blood Negative (NEGATIVE) 12/18/18 22:58 Urine Nitrite Negative (NEGATIVE) 12/18/18 22:58 Urine Bilirubin Negative (NEGATIVE) 12/18/18 22:58 Urine Urobilinogen 0.2 mg/dL (0.2-1.0) 12/18/18 22:58 Ur Leukocyte Esterase Negative (NEGATIVE) 12/18/18 22:58 RPR Titer Nonreactive (NONREACTIVE) 12/19/18 07:00 HIV 1&2 Antibody Screen Negative 12/19/18 07:00 HIV P24 Antigen Negative 12/19/18 07:00 lab noted - Treatment Hospital Course: Detox Protocol Followed, Detoxed Safely, Responded well, Discharged Condition Good, Rehab Referral Accepted Patient has Accepted a Rehab Referral to: opiate out patient facility - Medication Discharge Medications: Ambulatory Orders Naloxone HCl [Narcan] 4 mg NS ASDIR PRN #1 spray 12/20/18 - Diagnosis (1) Opioid dependence with withdrawal Current Visit: Yes Status: Acute (2) Weight loss Current Visit: Yes Status: Acute (3) Nicotine dependence Current Visit: Yes Status: Acute Qualifiers: Nicotine product type: cigarettes Substance use status: in withdrawal Qualified Code(s): F17.213 - Nicotine dependence, cigarettes, with withdrawal - AMA Did Patient Leave Against Medical Advice: No
[2018-12-21] MEDS ORDERED: METHADONE HCL 5 MG TABLET (FOR DETOX USE ONLY) PO ONE (06:00)
== END 2018-12-20 02:47 | disposition home or self-care (01) | DRG 773 ==
LOC: YASAS 10:37 → Y3N 15:59
PROVIDERS: ADMIT Surgery; ATTEND Surgery
PROC: HZ2ZZZZ Detoxification Services for Substance Abuse Treatment (ICD-10-PCS; principal; 2018-12-18)
DX: F11.23 Opioid dependence with withdrawal (principal); F14.20 Cocaine dependence, uncomplicated; F12.20 Cannabis dependence, uncomplicated; F17.223 Nicotine dependence, chewing tobacco, with withdrawal; N20.0 Calculus of kidney; R63.4 Abnormal weight loss; Z68.23 Body mass index [BMI] 23.0-23.9, adult; Z59.0 Homelessness
CPT/HCPCS: 36415; 80053; 81003; 85027; 86593; 87389; J0735

== ENCOUNTER 2019-01-03 09:23 | Inpatient (IN) | payer OTHER ==
[2019-01-03 09:49] VITALS: BMI 24.0
--- NOTE | 2019-01-03 11:09 | HP ---
COWS - Scale Resting Pulse: 0= [place] 80 or Below Sweatin= Chills/Flushing Restless Observation: 0= Sits Still Pupil Size: 0= Normal to Room Light Bone or Joint Aches: 1= Mild Discomfort Runny Nose/ Eye Tearin= Runny Nose/Eyes GI Upset > 30mins: 0= None Tremor Observation: 0= None Yawning Observation: 0= None Anxiety or Irritability: 2=Irritable/Anxious Goose Flesh Skin: 0=Smooth Skin COWS Score: 6 CIWA Score - Admission Criteria OASAS Guidelines: Admission for Medically Managed Detox: Requires at least one of the followin. CIWA greater than 12 2. Seizures within the past 24 hours 3. Delirium tremens within the past 24 hours 4. Hallucinations within the past 24 hours 5. Acute intervention needed for co occurring medical disorder 6. Acute intervention needed for co occurring psychiatric disorder 7. Severe withdrawal that cannot be handled at a lower level of care (continued vomiting, continued diarrhea, abnormal vital signs) requiring intravenous medication and/or fluids 8. Admission ROS [facility] Allergies/Adverse Reactions: Allergies Allergy/AdvReac Type Severity Reaction Status Date / Time No Known Allergies Allergy Verified 01/03/19 09:44 History of Present Illness: pt here requesting detox from heroin use , reports 1-5 bags/day via inhalation , denies IVDU , reports use x 14 years , longest sobriety 8 months while staying w/ parents in [place] , most recent relapse since d/c from this facility 2 weeks ago , denies OD , latest use last night around 5-6 pm, current symptoms as above . MMTP - 2 years ago at [facility] , highest 60 mg , stopped going " I didn't like it , I don't like methadone " , planning to go to outpt after d/c . cannabis - daily since age 17 cocaine - weekly since age 20 , 20 $ , denies IVDU benzo - denies use pmhx : denies PSHx : r kidney stones psych : denies , denies current SI / HI tobacco : 1/2 ppd , interested in smoking cessation SHx : homeless , finances habit through family and p/t work as golf range attendant , denies current legal issues . Exam Limitations: Clinical Condition - Ebola screening Have you traveled outside of the country in the last 21 days: No (N) Have you had contact with anyone from an Ebola affected area: No Do you have a fever: No - Review of Systems Constitutional: See HPI EENT: reports: Nose Congestion Respiratory: reports: No Symptoms reported Cardiac: reports: No Symptoms Reported GI: reports: No Symptoms Reported : reports: No Symptoms Reported Musculoskeletal: reports: See HPI Integumentary: reports: No Symptoms Reported Neuro: reports: No Symptoms reported Endocrine: reports: No Symptoms Reported Psychiatric: reports: Orientated x3, Anxious Patient History - Patient Medical History Hx Anemia: No Hx Asthma: No Hx Chronic Obstructive Pulmonary Disease (COPD): No Hx Cancer: No Hx Cardiac Disorders: No Hx Congestive Heart Failure: No Hx Hypertension: No Hx Hypercholesterolemia: No Hx Pacemaker: No HX Cerebrovascular Accident: No Hx Seizures: No Hx Dementia: No Hx Diabetes: No Hx Gastrointestinal Disorders: No Hx Liver Disease: No Hx Genitourinary Disorders: No Hx Sexually Transmitted Disorders: No Hx Renal Disease (ESRD): No Hx Thyroid Disease: No Hx Human Immunodeficiency Virus (HIV): No (last 2014 negative) Hx Hepatitis C: No Hx Depression: No Hx Suicide Attempt: No (DENIES) Hx Bipolar Disorder: No Hx Schizophrenia: No - Patient Surgical History Past Surgical History: Yes Hx Neurologic Surgery: No Hx Cataract Extraction: No Hx Cardiac Surgery: No Hx Lung Surgery: No Hx Breast Surgery: No Hx Breast Biopsy: No Hx Abdominal Surgery: No Hx Appendectomy: No Hx Cholecystectomy: No Hx Genitourinary Surgery: Yes (kidney stone right in 2016) Hx Section: No Hx Orthopedic Surgery: No Anesthesia Reaction: No - PPD History Date: 06/01/18 Results: 0MM - Smoking Cessation Smoking history: Current every day smoker Have you smoked in the past 12 months: Yes Aproximately how many cigarettes per day: 10 Hx Chewing Tobacco Use: No Initiated information on smoking cessation: No - Substances abused Heroin Substance route: Inhalation Frequency: Daily Amount used: 5BAGS- $50 Age of first use: 29 Date of last use: 01/02/19 Cocaine Other (specify): sniff Substance route: Inhalation Frequency: 1-2 times per week Amount used: $20 Age of first use: 20 Date of last use: 12/31/18 Marijuana/Hashish Substance route: Smoking Frequency: Daily Amount used: $10 Age of first use: 17 Date of last use: 01/01/19 Family Disease History - Family Disease History Family Disease History: Other: Father (A & W ), Mother (A& W , CVA ) Admission Physical Exam S - Vital Signs Vital Signs: Vital Signs - 24 hr 01/03/19 09:43 Temperature 97.5 F L Pulse Rate 56 L Respiratory 20 Rate Blood Pressure 113/75 - Physical General Appearance: Yes: Mild Distress, Anxious HEENTM: Yes: EOMI, Hearing grossly Normal, Normocephalic, Normal Voice, Nasal Congestion, Rhinorrhea, Other (r conjuctival scarring - reports remote childhood injury) Respiratory: Yes: Chest Non-Tender, Lungs Clear, Normal Breath Sounds Neck: Yes: No masses,lesions,Nodules, Trachea in good position Cardiology: Yes: Regular Rhythm, Regular Rate, S1, S2 Abdominal: Yes: Non Tender, Soft Back: Yes: Normal Inspection Musculoskeletal: Yes: Gait Steady Extremities: Yes: Normal Range of Motion, Non-Tender, Other (left Vth finger pip F contrx deformity , reports injury 2 years ago) Neurological: Yes: Fully Oriented, Alert, Motor Strength 5/5 Integumentary: Yes: Warm - Diagnostic (1) Nicotine dependence Current Visit: Yes Status: Acute Qualifiers: Nicotine product type: cigarettes (2) Opioid dependence with withdrawal Current Visit: Yes Status: Acute (3) Cannabis dependence Current Visit: Yes Status: Chronic (4) Cocaine dependence Current Visit: Yes Status: Chronic Qualifiers: Substance use status: uncomplicated Qualified Code(s): F14.20 - Cocaine dependence, uncomplicated Breathalyzer - Breathalyzer Breathalyzer: 0 Urine Drug Screen - Test Device Lot number: [id number] Expiration date: 09/22/20 - Control Is test valid?: Yes - Results Drug screen NEGATIVE: No Urine drug screen results: THC-Marijuana, DARIAN-Cocaine, MOP-Opiates, BZO- Benzodiazepines Inpatient Rehab Admission - Rehab Decision to Admit Inpatient rehab admission?: No
[2019-01-03] MEDS ORDERED: MENTHOL/PHENOL 1 EACH UD MM PRN (11:24)
[2019-01-03] MEDS ORDERED: MAG HYDROX/AL HYDROX/SIMETH 30 ML UNIT-DOSE CUP PO PRN (11:24)
[2019-01-03] MEDS ORDERED: MAGNESIUM CITRATE 300 ML BOTTLE PO PRN (11:24)
[2019-01-03] MEDS ORDERED: MAGNESIUM HYDROX 2400MG/30ML ORAL SUSPENSION 30 ML CUP PO PRN (11:24)
[2019-01-03] MEDS ORDERED: ACETAMINOPHEN 325 MG TABLET (FP) PO PRN ×2 (11:24)
[2019-01-03] MEDS ORDERED: BISMUTH SUBSALICYLATE 262 MG/15 ML BTL PO PRN (11:24)
[2019-01-03] MEDS ORDERED: IBUPROFEN 400 MG TABLET (FP) PO PRN (11:24)
[2019-01-03] MEDS ORDERED: METHADONE HCL 10 MG TABLET (FOR DETOX USE ONLY) PO ONE (11:26)
[2019-01-03] MEDS: NICOTINE POLACRILEX 2 MG GUM BUC PRN (17:22)
[2019-01-03] MEDS: hydrOXYzine PAMOATE 25 MG CAPSULE (FP) PO PRN (17:24)
[2019-01-03] MEDS: cloNIDine HCL 0.1 MG TABLET PO PRN (17:24)
[2019-01-03] MEDS: MELATONIN 5 MG TABLETS PO PRN (22:21)
[2019-01-03] MEDS: THIAMINE HCL 100 MG TABLET (FP) PO SCH (22:22)
[2019-01-04] MEDS: hydrOXYzine PAMOATE 25 MG CAPSULE (FP) PO PRN ×3 (05:59→20:30)
[2019-01-04] MEDS: cloNIDine HCL 0.1 MG TABLET PO PRN ×3 (05:59→20:30)
[2019-01-04] MEDS ORDERED: METHADONE HCL 5 MG TABLET (FOR DETOX USE ONLY) PO ONE (10:00)
[2019-01-04] MEDS: PRENATAL VITAMINS W/ FOLIC ACID TABLET (FP) PO SCH (10:38)
[2019-01-04] MEDS: NICOTINE POLACRILEX 2 MG GUM BUC PRN ×2 (10:40→17:09)
--- NOTE | 2019-01-04 13:48 | PN ---
BHS COWS - Scale Resting Pulse: 0= [place] 80 or Below Sweatin= Chills/Flushing Restless Observation: 1= Difficult to Sit Still Pupil Size: 0= Normal to Room Light Bone or Joint Aches: 2= Severe Diffuse Aches Runny Nose/ Eye Tearin= None GI Upset > 30mins: 0= None Tremor Observation of Outstretched Hands: 2= Slight Tremor Visible Yawning Observation: 1= 1-2x During Session Anxiety or Irritability: 2=Irritable/Anxious Goose Flesh Skin: 3=Piloerection COWS Score: 12 BHS Progress Note (SOAP) Subjective: Body Aches, Interrupted Sleep, Anxious, Night Sweating. Objective: PATIENT A & O X 3, OBSERVED AMBULATING ON UNIT UNASSISTED. IN NO ACUTE DISTRESS. 01/04/19 13:44 Vital Signs Temperature 97.0 F L 01/04/19 13:12 Pulse Rate 67 01/04/19 13:12 Respiratory Rate 18 01/04/19 13:12 Blood Pressure 130/79 01/04/19 13:12 O2 Sat by Pulse Oximetry (%) ADMISSION LAB RESULTS PENDING. 01/04/19 13:46 Assessment: 01/04/19 13:47 WITHDRAWAL SYMPTOMS. Plan: CONTINUE DETOX. PRN ROBAXIN PO FOR BODY ACHES/ MUSCLE SPASMS.
[2019-01-04] MEDS: METHOCARBAMOL 750 MG TABLET PO PRN (17:09)
[2019-01-04] MEDS: THIAMINE HCL 100 MG TABLET (FP) PO SCH (22:18)
[2019-01-04] MEDS: MELATONIN 5 MG TABLETS PO PRN (22:18)
[2019-01-05] MEDS: hydrOXYzine PAMOATE 25 MG CAPSULE (FP) PO PRN ×2 (05:54→12:47)
[2019-01-05] MEDS: cloNIDine HCL 0.1 MG TABLET PO PRN ×2 (05:54→12:47)
--- NOTE | 2019-01-05 09:39 | PN ---
BHS COWS - Scale Resting Pulse: 0= [place] 80 or Below Sweatin= Chills/Flushing Restless Observation: 1= Difficult to Sit Still Pupil Size: 1= Pupils >than Normal Bone or Joint Aches: 2= Severe Diffuse Aches Runny Nose/ Eye Tearin= Nasal Congestion GI Upset > 30mins: 2= Nausea/Diarrhea Tremor Observation of Outstretched Hands: 2= Slight Tremor Visible Yawning Observation: 1= 1-2x During Session Anxiety or Irritability: 2=Irritable/Anxious Goose Flesh Skin: 0=Smooth Skin COWS Score: 13 BHS Progress Note (SOAP) Subjective: alert,irritable,anxious,interrupted sleep,pain in the body Objective: 01/05/19 09:37 Vital Signs Temperature 97.7 F 01/05/19 06:45 Pulse Rate 66 01/05/19 06:45 Respiratory Rate 18 01/05/19 06:45 Blood Pressure 118/90 01/05/19 06:45 O2 Sat by Pulse Oximetry (%) Assessment: 01/05/19 09:38 withdrawal symptom labs pending Plan: continue detox
[2019-01-05 10:00] LABS: BASO % 0.6 % (0-2.0); EOS % 3.8 % (0-4.5); HEMATOCRIT 41.2 % (35.4-49); HEMOGLOBIN 13.8 GM/dL (11.7-16.9); LYMPH % 21.3 % (8-40); MCH 31.7 pg (25.7-33.7); MCHC 33.5 g/dl (32.0-35.9); MEAN CELL VOLUME 94.5 fl (80-96); MEAN PLT VOLUME 8.6 fl (7.5-11.1); MONO % 8.3 % (3.8-10.2); PLATELET COUNT 290 K/MM3 (134-434); RBC 4.35 M/mm3 (4.00-5.60); RDW 13.9 % (11.9-15.9); WHITE BLOOD COUNT 6.1 K/mm3 (4.0-10.0)
[2019-01-05] MEDS ORDERED: METHADONE HCL 10 MG TABLET (FOR DETOX USE ONLY) PO ONE (10:00)
[2019-01-05 10:12] LABS: ALBUMIN 3.6 g/dl (3.4-5.0); BILIRUBIN,TOTAL 0.6 mg/dL (0.2-1); CALCIUM 8.8 mg/dL (8.5-10.1); TOT PROT 6.9 g/dl (6.4-8.2)
[2019-01-05] MEDS: PRENATAL VITAMINS W/ FOLIC ACID TABLET (FP) PO SCH (10:50)
[2019-01-05] MEDS: METHOCARBAMOL 750 MG TABLET PO PRN (10:52)
[2019-01-05] MEDS: NICOTINE POLACRILEX 2 MG GUM BUC PRN (10:54)
--- NOTE | 2019-01-05 14:37 | PN ---
[facility] Progress Note Note: patient did not want to complete treatment stated has family emergency,all attempts to convince patient to stay with no avail,patient understood of high risk of relapsing,seen by counselor,signed release AMA, advise to go to emergency room if emergency problem,left the unit is stable condition
--- NOTE | 2019-01-05 14:38 | DS ---
[facility] Detox Discharge Summary Admission Date: 01/03/19 Discharge Date: 01/05/19 - History Present History: Cannabis Dependence, Cocaine Dependence, Opioid Dependence Additional Comments: patient left AMA due to family emergency - Physical Exam Results Vital Signs: Vital Signs Temperature 97.7 F 01/05/19 09:54 Pulse Rate 75 01/05/19 09:54 Respiratory Rate 18 01/05/19 09:54 Blood Pressure 125/76 01/05/19 09:54 O2 Sat by Pulse Oximetry (%) Pertinent Admission Physical Exam Findings: withdrawal signs and symptom Laboratory Last Values WBC 6.1 K/mm3 (4.0-10.0) 01/05/19 07:00 RBC 4.35 M/mm3 (4.00-5.60) 01/05/19 07:00 Hgb 13.8 GM/dL (11.7-16.9) 01/05/19 07:00 Hct 41.2 % (35.4-49) 01/05/19 07:00 MCV 94.5 fl (80-96) 01/05/19 07:00 MCH 31.7 pg (25.7-33.7) 01/05/19 07:00 MCHC 33.5 g/dl (32.0-35.9) 01/05/19 07:00 RDW 13.9 % (11.9-15.9) 01/05/19 07:00 Plt Count 290 K/MM3 (134-434) 01/05/19 07:00 MPV 8.6 fl (7.5-11.1) 01/05/19 07:00 Absolute Neuts (auto) 4.0 K/mm3 (1.5-8.0) 01/05/19 07:00 Neutrophils % 66.0 % (42.8-82.8) 01/05/19 07:00 Lymphocytes % 21.3 % (8-40) 01/05/19 07:00 Monocytes % 8.3 % (3.8-10.2) 01/05/19 07:00 Eosinophils % 3.8 % (0-4.5) 01/05/19 07:00 Basophils % 0.6 % (0-2.0) 01/05/19 07:00 Nucleated RBC % 0 % (0-0) 01/05/19 07:00 Sodium 138 mmol/L (136-145) 01/05/19 07:00 Potassium 4.0 mmol/L (3.5-5.1) 01/05/19 07:00 Chloride 106 mmol/L (98-107) 01/05/19 07:00 Carbon Dioxide 25 mmol/L (21-32) 01/05/19 07:00 Anion Gap 8 MMOL/L (8-16) 01/05/19 07:00 BUN 15 mg/dL (7-18) 01/05/19 07:00 Creatinine 1.0 mg/dL (0.55-1.3) 01/05/19 07:00 Est GFR (CKD-EPI)AfAm 105.62 01/05/19 07:00 Est GFR (CKD-EPI)NonAf 91.13 01/05/19 07:00 Random Glucose 137 mg/dL (74-106) H 01/05/19 07:00 Calcium 8.8 mg/dL (8.5-10.1) 01/05/19 07:00 Total Bilirubin 0.6 mg/dL (0.2-1) 01/05/19 07:00 AST 13 U/L (15-37) L 01/05/19 07:00 ALT 22 U/L (13-61) 01/05/19 07:00 Alkaline Phosphatase 67 U/L (45-117) 01/05/19 07:00 Total Protein 6.9 g/dl (6.4-8.2) 01/05/19 07:00 Albumin 3.6 g/dl (3.4-5.0) 01/05/19 07:00 Vital Signs Temperature 97.7 F 01/05/19 09:54 Pulse Rate 75 01/05/19 09:54 Respiratory Rate 18 01/05/19 09:54 Blood Pressure 125/76 01/05/19 09:54 O2 Sat by Pulse Oximetry (%) - Medication Discharge Medications: Ambulatory Orders NK [No Known Home Medication] 01/03/19 - AMA Did Patient Leave Against Medical Advice: Yes
[2019-01-05 15:15] VITALS: BP 133/83; PULSE 90; TEMP 97.8
[2019-01-06] MEDS ORDERED: METHADONE HCL 5 MG TABLET (FOR DETOX USE ONLY) PO ONE (06:00)
== END 2019-01-05 14:55 | disposition left against medical advice (07) | DRG 770 ==
LOC: YASAS 09:23 → Y3N 11:33 → Y6N 12:30
PROVIDERS: ADMIT Surgery; ATTEND Surgery
PROC: HZ2ZZZZ Detoxification Services for Substance Abuse Treatment (ICD-10-PCS; principal; 2019-01-03)
DX: F11.23 Opioid dependence with withdrawal (principal); F14.20 Cocaine dependence, uncomplicated; F12.20 Cannabis dependence, uncomplicated; F17.210 Nicotine dependence, cigarettes, uncomplicated; Z59.0 Homelessness
CPT/HCPCS: 36415; 80053; 85025; J0735

== ENCOUNTER 2019-06-12 19:26 | Inpatient (IN) | payer OTHER ==
[2019-06-12 21:19] VITALS: BMI 23.3
--- NOTE | 2019-06-13 01:00 | HP ---
COWS - Scale Resting Pulse: 0= [place] 80 or Below Sweatin=Flushed/Facial Moisture Restless Observation: 1= Difficult to Sit Still Pupil Size: 1= Pupils >than Normal Bone or Joint Aches: 4=Acute Joint/Muscle Pain Runny Nose/ Eye Tearin= Runny Nose/Eyes GI Upset > 30mins: 1= Stomach Cramp Tremor Observation: 2= Slight Tremor Visible Yawning Observation: 0= None Anxiety or Irritability: 4=Extreme Anxiety Goose Flesh Skin: 0=Smooth Skin COWS Score: 17 CIWA Score - Admission Criteria OASAS Guidelines: Admission for Medically Managed Detox: Requires at least one of the followin. CIWA greater than 12 2. Seizures within the past 24 hours 3. Delirium tremens within the past 24 hours 4. Hallucinations within the past 24 hours 5. Acute intervention needed for co occurring medical disorder 6. Acute intervention needed for co occurring psychiatric disorder 7. Severe withdrawal that cannot be handled at a lower level of care (continued vomiting, continued diarrhea, abnormal vital signs) requiring intravenous medication and/or fluids 8. Admitting History and Physical - Smoking History Smoking history: Current every day smoker Have you smoked in the past 12 months: Yes Aproximately how many cigarettes per day: 10 - Alcohol/Substance Use Hx Alcohol Use: No Admission ROS [facility] - HPI Chief Complaint: Heroin withdrawal symptoms Allergies/Adverse Reactions: Allergies Allergy/AdvReac Type Severity Reaction Status Date / Time No Known Allergies Allergy Verified 06/12/19 21:16 History of Present Illness: 44 years old male with 12 years of heroin dependence is seeking admission to detox. Patient has been in multiple detox and reports 18 months of sobriety. He has medical history of Hep C. He denies suicidal ideation at this time - Ebola screening Have you traveled outside of the country in the last 21 days: No (N) Have you had contact with anyone from an Ebola affected area: No Do you have a fever: No - Review of Systems Constitutional: Chills, Malaise, Changes in sleep EENT: reports: No Symptoms Reported Respiratory: reports: No Symptoms reported Cardiac: reports: No Symptoms Reported GI: reports: Poor Appetite, Poor Fluid Intake, Vomiting, Abdominal cramping : reports: No Symptoms Reported Musculoskeletal: reports: No Symptoms Reported, Back Pain, Joint Pain, Muscle Pain, Muscle Weakness Integumentary: reports: Dryness, Flushing Neuro: reports: Headache, Tremors Endocrine: reports: No Symptoms Reported Hematology: reports: Blood Clots Psychiatric: reports: Mood/Affect Appropiate, Orientated x3, Anxious Other Systems: Reviewed and Negative Patient History - Patient Medical History Hx Anemia: No Hx Asthma: No Hx Chronic Obstructive Pulmonary Disease (COPD): No Hx Cancer: No Hx Cardiac Disorders: No Hx Congestive Heart Failure: No Hx Hypertension: No Hx Hypercholesterolemia: No Hx Pacemaker: No HX Cerebrovascular Accident: No Hx Seizures: No Hx Dementia: No Hx Diabetes: No Hx Gastrointestinal Disorders: No Hx Liver Disease: No Hx Genitourinary Disorders: No Hx Sexually Transmitted Disorders: No Hx Renal Disease (ESRD): No Hx Thyroid Disease: No Hx Human Immunodeficiency Virus (HIV): No (last 2014 negative) Hx Hepatitis C: Yes Hx Depression: No Hx Suicide Attempt: No (DENIES SUICIDAL IDEATION AT THIS TIME) Hx Bipolar Disorder: No Hx Schizophrenia: No - Patient Surgical History Past Surgical History: Yes Hx Neurologic Surgery: No Hx Cataract Extraction: No Hx Cardiac Surgery: No Hx Lung Surgery: No Hx Breast Surgery: No Hx Breast Biopsy: No Hx Abdominal Surgery: No Hx Appendectomy: No Hx Cholecystectomy: No Hx Genitourinary Surgery: Yes (kidney stone right in 2016) Hx Section: No Hx Orthopedic Surgery: No Anesthesia Reaction: No - PPD History Previous Implant?: Yes Documented Results: Negative w/proof Implanted On Prior [facility] Admission?: Yes Date: 06/01/18 Results: 0MM PPD to be Administered?: Yes - Reproductive History Patient is a Female of Child Bearing Age (11 -55 yrs old): No (MALE) - Smoking Cessation Smoking history: Current every day smoker Have you smoked in the past 12 months: Yes Aproximately how many cigarettes per day: 10 Hx Chewing Tobacco Use: No Initiated information on smoking cessation: Yes 'Breaking Loose' booklet given: 06/13/19 - Substance & Tx. History Hx Alcohol Use: No Hx Substance Use: No Substance Use Type: Heroin Hx Substance Use Treatment: Yes ([facility]) - Substances abused Heroin Substance route: Inhalation Frequency: Daily Amount used: 4-5BAGS- $50 Age of first use: 29 Date of last use: 06/12/19 Cocaine Other (specify): sniff Substance route: Inhalation Frequency: 1-2 times per week Amount used: $20 Age of first use: 20 Date of last use: 06/10/19 Marijuana/Hashish Substance route: Smoking Frequency: Daily Amount used: $10 Age of first use: 17 Date of last use: 06/11/19 Admission Physical Exam BHS - Vital Signs Vital Signs: Vital Signs - 24 hr 06/12/19 21:16 Temperature 97.0 F L Pulse Rate 80 Respiratory 18 Rate Blood Pressure 131/69 - Physical General Appearance: Yes: Within Normal Limits, Moderate Distress HEENTM: Yes: Normal ENT Inspection, Normocephalic, Normal Voice, [place] Respiratory: Yes: Lungs Clear, Normal Breath Sounds, No Respiratory Distress Neck: Yes: Supple Breast: Yes: Breast Exam Deferred Cardiology: Yes: Regular Rhythm, Regular Rate Abdominal: Yes: Within Normal Limits Genitourinary: Yes: Within Normal Limits Back: Yes: Normal Inspection Musculoskeletal: Yes: Within Normal Limits Extremities: Yes: Normal Capillary Refill Neurological: Yes: Normal Mood/Affect Integumentary: Yes: Warm Lymphatic: Yes: Within Normal Limits - Diagnostic (1) Nicotine dependence Current Visit: Yes Status: Chronic Qualifiers: Nicotine product type: cigarettes Substance use status: uncomplicated Qualified Code(s): F17.210 - Nicotine dependence, cigarettes, uncomplicated (2) Opioid dependence with withdrawal Current Visit: Yes Status: Acute (3) Hep C w/ coma, chronic Current Visit: Yes Status: Acute Breathalyzer - Breathalyzer Breathalyzer: 0 Urine Drug Screen - Test Device Lot number: [id number] Expiration date: 02/19/21 - Control Is test valid?: Yes - Results Drug screen NEGATIVE: Yes Urine drug screen results: THC-Marijuana, DARIAN-Cocaine, FEN-Fentanyl, OXY- Oxycodone, BZO-Benzodiazepines Inpatient Rehab Admission - Rehab Decision to Admit Inpatient rehab admission?: No
[2019-06-13] MEDS ORDERED: MAGNESIUM HYDROX 2400MG/30ML ORAL SUSPENSION 30 ML CUP PO PRN (01:10)
[2019-06-13] MEDS ORDERED: MAGNESIUM CITRATE 300 ML BOTTLE PO PRN (01:10)
[2019-06-13] MEDS ORDERED: MENTHOL/PHENOL 1 EACH UD MM PRN (01:10)
[2019-06-13] MEDS ORDERED: BISMUTH SUBSALICYLATE 524 MG/30 ML UD PO PRN (01:10)
[2019-06-13] MEDS ORDERED: METHADONE HCL 10 MG TABLET (FOR DETOX USE ONLY) PO ONE (01:10)
[2019-06-13] MEDS ORDERED: MAG HYDROX/AL HYDROX/SIMETH 30 ML UNIT-DOSE CUP PO PRN (01:10)
[2019-06-13] MEDS ORDERED: ACETAMINOPHEN 325 MG TABLET (FP) PO PRN ×2 (01:10)
--- NOTE | 2019-06-13 05:04 | HP ---
COWS - Scale Resting Pulse: 0= [place] 80 or Below Sweatin=Flushed/Facial Moisture Restless Observation: 1= Difficult to Sit Still Pupil Size: 1= Pupils >than Normal Bone or Joint Aches: 4=Acute Joint/Muscle Pain Runny Nose/ Eye Tearin= Runny Nose/Eyes GI Upset > 30mins: 1= Stomach Cramp Tremor Observation: 2= Slight Tremor Visible Yawning Observation: 0= None Anxiety or Irritability: 4=Extreme Anxiety Goose Flesh Skin: 0=Smooth Skin COWS Score: 17 CIWA Score - Admission Criteria [facility]ASAS Guidelines: Admission for Medically Managed Detox: Requires at least one of the followin. CIWA greater than 12 2. Seizures within the past 24 hours 3. Delirium tremens within the past 24 hours 4. Hallucinations within the past 24 hours 5. Acute intervention needed for co occurring medical disorder 6. Acute intervention needed for co occurring psychiatric disorder 7. Severe withdrawal that cannot be handled at a lower level of care (continued vomiting, continued diarrhea, abnormal vital signs) requiring intravenous medication and/or fluids 8. Admitting History and Physical - Admission Chief Complaint: Heroin withdrawal symptoms History of Present Illness: 44 years old male with 12 years of heroin dependence is seeking admission to detox. Patient has been in multiple detox and reports 18 months of sobriety. He has medical history of Hep C. He denies suicidal ideation at this time - Smoking History Smoking history: Current every day smoker Have you smoked in the past 12 months: Yes Aproximately how many cigarettes per day: 10 - Alcohol/Substance Use Hx Alcohol Use: No Admission [facility] Chief Complaint: Heroin withdrawal symptoms Allergies/Adverse Reactions: Allergies Allergy/AdvReac Type Severity Reaction Status Date / Time No Known Allergies Allergy Verified 06/12/19 21:16 History of Present Illness: 44 years old male with 12 years of heroin dependence is seeking admission to detox. Patient has been in multiple detox and reports 18 months of sobriety. He has medical history of Hep C. He denies suicidal ideation at this time Exam Limitations: No Limitations - Ebola screening Have you traveled outside of the country in the last 21 days: No (N) Have you had contact with anyone from an Ebola affected area: No Do you have a fever: No - Review of Systems Constitutional: Chills, Malaise, Changes in sleep EENT: reports: No Symptoms Reported Respiratory: reports: No Symptoms reported Cardiac: reports: No Symptoms Reported GI: reports: Nausea, Poor Appetite, Poor Fluid Intake, Abdominal cramping : reports: No Symptoms Reported Musculoskeletal: reports: Back Pain, Joint Pain, Muscle Pain Integumentary: reports: Dryness, Flushing Neuro: reports: Headache, Tremors Endocrine: reports: No Symptoms Reported Hematology: reports: No Symptoms Reported Psychiatric: reports: Mood/Affect Appropiate, Orientated x3, Anxious Other Systems: Reviewed and Negative Patient History - Patient Medical History Hx Anemia: No Hx Asthma: No Hx Chronic Obstructive Pulmonary Disease (COPD): No Hx Cancer: No Hx Cardiac Disorders: No Hx Congestive Heart Failure: No Hx Hypertension: No Hx Hypercholesterolemia: No Hx Pacemaker: No HX Cerebrovascular Accident: No Hx Seizures: No Hx Dementia: No Hx Diabetes: No Hx Gastrointestinal Disorders: No Hx Liver Disease: No Hx Genitourinary Disorders: No Hx Sexually Transmitted Disorders: No Hx Renal Disease (ESRD): No Hx Thyroid Disease: No Hx Human Immunodeficiency Virus (HIV): No (last 2014 negative) Hx Hepatitis C: Yes Hx Depression: No Hx Suicide Attempt: No Hx Bipolar Disorder: No Hx Schizophrenia: No - Patient Surgical History Past Surgical History: Yes Hx Neurologic Surgery: No Hx Cataract Extraction: No Hx Cardiac Surgery: No Hx Lung Surgery: No Hx Breast Surgery: No Hx Breast Biopsy: No Hx Abdominal Surgery: No Hx Appendectomy: No Hx Cholecystectomy: No Hx Genitourinary Surgery: Yes (kidney stone right in 2016) Hx Section: No Hx Orthopedic Surgery: No Anesthesia Reaction: No - PPD History Previous Implant?: Yes Documented Results: Negative w/proof Implanted On Prior [facility] Admission?: Yes Date: 06/01/18 Results: 0MM PPD to be Administered?: Yes - Reproductive History Patient is a Female of Child Bearing Age (11 -55 yrs old): No (male) Patient : No - Smoking Cessation Smoking history: Current every day smoker Have you smoked in the past 12 months: Yes Aproximately how many cigarettes per day: 10 Hx Chewing Tobacco Use: No Initiated information on smoking cessation: Yes 'Breaking Loose' booklet given: 06/13/19 - Substance & Tx. History Hx Alcohol Use: No Hx Substance Use: Yes Substance Use Type: Heroin Hx Substance Use Treatment: Yes ([facility]) - Substances abused Heroin Substance route: Inhalation Frequency: Daily Amount used: 4-5BAGS- $50 Age of first use: 29 Date of last use: 06/12/19 Cocaine Other (specify): sniff Substance route: Inhalation Frequency: 1-2 times per week Amount used: $20 Age of first use: 20 Date of last use: 06/10/19 Marijuana/Hashish Substance route: Smoking Frequency: Daily Amount used: $10 Age of first use: 17 Date of last use: 06/11/19 Admission Physical Exam [facility] - Vital Signs Vital Signs: Vital Signs - 24 hr 06/12/19 06/13/19 06/13/19 21:16 01:31 03:30 Temperature 97.0 F L 97.5 F L Pulse Rate 80 52 L Respiratory 18 18 18 Rate Blood Pressure 131/69 112/75 - Physical General Appearance: Yes: Moderate Distress, Tremorous, Sweating, Anxious HEENTM: Yes: Within Normal Limits, Normocephalic Respiratory: Yes: Lungs Clear, Normal Breath Sounds, No Respiratory Distress Neck: Yes: Supple Breast: Yes: Breast Exam Deferred Cardiology: Yes: Regular Rhythm, Regular Rate Abdominal: Yes: Normal Bowel Sounds Genitourinary: Yes: Within Normal Limits Back: Yes: Normal Inspection Musculoskeletal: Yes: Back pain, Muscle Pain, Muscle weakness Extremities: Yes: Normal Inspection Neurological: Yes: Within Normal Limits, Normal Response Integumentary: Yes: Warm Lymphatic: Yes: Within Normal Limits - Diagnostic (1) Nicotine dependence Current Visit: Yes Status: Chronic Qualifiers: Nicotine product type: cigarettes Substance use status: uncomplicated Qualified Code(s): F17.210 - Nicotine dependence, cigarettes, uncomplicated (2) Opioid dependence with withdrawal Current Visit: Yes Status: Acute (3) Hep C w/ coma, chronic Current Visit: Yes Status: Acute Cleared for Admission [facility] - Detox or Rehab [facility] Level of Care: Medically Managed Detox Regimen/Protocol: Methadone Breathalyzer - Breathalyzer Breathalyzer: 0 Urine Drug Screen - Test Device Lot number: [id number] Expiration date: 02/19/21 - Control Is test valid?: Yes - Results Drug screen NEGATIVE: Yes Urine drug screen results: THC-Marijuana, DARIAN-Cocaine, FEN-Fentanyl, OXY- Oxycodone, BZO-Benzodiazepines Inpatient Rehab Admission - Rehab Decision to Admit Inpatient rehab admission?: No
[2019-06-13] MEDS: NICOTINE 14 MG/24 HOURS TOPICAL PATCH TD SCH (10:25)
[2019-06-13] MEDS: PRENATAL VITAMINS W/ FOLIC ACID TABLET (FP) PO SCH (10:25)
[2019-06-13] MEDS: hydrOXYzine PAMOATE 25 MG CAPSULE (FP) PO PRN (10:26)
[2019-06-13] MEDS ORDERED: P-EPHED 60MG/TRIPROLIDI 2.5MG TABLET PO PRN (11:47)
--- NOTE | 2019-06-13 11:47 | PN ---
BHS COWS - Scale Resting Pulse: 0= [place] 80 or Below Sweatin= Chills/Flushing Restless Observation: 1= Difficult to Sit Still Pupil Size: 0= Normal to Room Light Bone or Joint Aches: 2= Severe Diffuse Aches Runny Nose/ Eye Tearin= Runny Nose/Eyes GI Upset > 30mins: 1= Stomach Cramp Tremor Observation of Outstretched Hands: 2= Slight Tremor Visible Yawning Observation: 2= >3x During Session Anxiety or Irritability: 2=Irritable/Anxious Goose Flesh Skin: 3=Piloerection COWS Score: 16 S Progress Note (SOAP) Subjective: sweats chills shakes interrupted sleep nasal congestions body aches irritable restless Objective: 06/13/19 11:46 Vital Signs Temperature 98.4 F 06/13/19 09:57 Pulse Rate 66 06/13/19 09:57 Respiratory Rate 18 06/13/19 09:57 Blood Pressure 126/71 06/13/19 09:57 O2 Sat by Pulse Oximetry (%) labs pending aaox3 ambulating no acute distress Assessment: 06/13/19 11:46 withdrawal sx Plan: continue detox valium 10mg q4hrs prn visitril prn acitifed prn ocean spray increase fluids
[2019-06-13] MEDS ORDERED: TRIMETHOBENZAMIDE HCL 300 MG CAPSULE PO PRN (11:48)
--- NOTE | 2019-06-13 11:51 | CONSULT ---
[facility] Psychiatric Consult - Data Date of interview: 06/13/19 Admission source: Self-referred Identifying data: Mr Mcgee is a 44 years old single , unemployed receiving food stamp, homeless seeking detox treatment for opioid cocaine and cannabis Substance Abuse History: Reports history of heroin, cocaine and marijuana use. Refer to addiction counselor's sumary for further information Medical History: Significant for hepatitis C, history of surgery for kidney stones in 2016 Psychiatric History: Denies history of previous psychiatric treatment Physical/Sexual Abuse/Trauma History: Denies history of emotional, physical or sexual abuse as well as DV relationship. No service Mental Status Exam - Mental Status Exam Alert and Oriented to: Time, Place, Person Cognitive Function: Fair Patient Appearance: Disheveled Mood: Hopeful, Euthymic Patient Behavior: Cooperative Speech Pattern: Clear Voice Loudness: Normal Thought Process: Intact, Goal Oriented Thought Disorder: Not Present Hallucinations: Denies Suicidal Ideation: Denies Homicidal Ideation: Denies Insight/Judgement: Poor Sleep: Well Appetite: Good Muscle strength/Tone: Normal Gait/Station: Normal Psychiatric Findings - Problem List ([place] 1, 2,3) (1) Uncomplicated opioid dependence Current Visit: Yes Status: Acute (2) Cocaine dependence Current Visit: No Status: Acute Qualifiers: Substance use status: uncomplicated Qualified Code(s): F14.20 - Cocaine dependence, uncomplicated (3) Cannabis dependence Current Visit: No Status: Acute (4) Nicotine dependence Current Visit: Yes Status: Chronic Qualifiers: Nicotine product type: cigarettes Substance use status: uncomplicated Qualified Code(s): F17.210 - Nicotine dependence, cigarettes, uncomplicated (5) Hep C w/ coma, chronic Current Visit: Yes Status: Chronic (6) Right kidney stone Current Visit: No Status: Resolved - Initial Treatment Plan Initial Treatment Plan: Continue inpatient detoxification
[2019-06-13] MEDS: diazePAM 5 MG TABLET PO PRN ×2 (12:28→22:26)
[2019-06-13] MEDS: SODIUM CHLORIDE NASAL SPRAY 44 ML BOTTLE NS SCH ×2 (15:20→22:28)
[2019-06-13] MEDS: MELATONIN 5 MG TABLETS PO PRN (22:25)
[2019-06-13] MEDS: THIAMINE HCL 100 MG TABLET (FP) PO SCH (22:27)
[2019-06-14] MEDS: diazePAM 5 MG TABLET PO PRN ×4 (05:46→19:18)
[2019-06-14] MEDS: SODIUM CHLORIDE NASAL SPRAY 44 ML BOTTLE NS SCH ×3 (05:48→22:55)
[2019-06-14] MEDS ORDERED: METHADONE HCL 10 MG TABLET (FOR DETOX USE ONLY) ONE (08:58)
[2019-06-14] MEDS ORDERED: METHADONE HCL 5 MG TABLET (FOR DETOX USE ONLY) ONE (08:58)
[2019-06-14 09:43] LABS: HEMATOCRIT 41.1 % (35.4-49); HEMOGLOBIN 13.7 GM/dL (11.7-16.9); MCH 31.2 pg (25.7-33.7); MCHC 33.3 g/dl (32.0-35.9); MEAN CELL VOLUME 93.8 fl (80-96); MEAN PLT VOLUME 8.9 fl (7.5-11.1); PLATELET COUNT 287 K/MM3 (134-434); RBC 4.38 M/mm3 (4.00-5.60); RDW 13.5 % (11.9-15.9); WHITE BLOOD COUNT 8.4 K/mm3 (4.0-10.0)
--- NOTE | 2019-06-14 09:44 | EKG ---
Test Reason : Blood Pressure : / mmHG Vent. Rate : 057 BPM Atrial Rate : 057 BPM P-R Int : 154 ms QRS Dur : 098 ms QT Int : 456 ms P-R-T Axes : 049 064 072 degrees QTc Int : 443 ms SINUS BRADYCARDIA WITH MARKED SINUS ARRHYTHMIA OTHERWISE NORMAL ECG WHEN COMPARED WITH ECG OF 30-MAY-2018 14:42, NO SIGNIFICANT CHANGE WAS FOUND Confirmed by MICH HUYNH, JUAN ([id number]) on 06/14/2019 9:43:59 AM Referred By: Tyree Hough Confirmed By:JUAN EPPS MD
[2019-06-14] MEDS ORDERED: METHADONE (DETOX) 20 MG, METHADONE (DETOX) 5 MG PO ONE (10:00)
[2019-06-14] MEDS: PRENATAL VITAMINS W/ FOLIC ACID TABLET (FP) PO SCH (10:15)
[2019-06-14] MEDS: NICOTINE 14 MG/24 HOURS TOPICAL PATCH TD SCH (10:15)
[2019-06-14] MEDS: NICOTINE POLACRILEX 2 MG GUM BUC PRN (10:16)
[2019-06-14 10:28] LABS: ALBUMIN 3.5 g/dl (3.4-5.0); BILIRUBIN,TOTAL 0.4 mg/dL (0.2-1); BLOOD UREA NITROGEN 13.2 mg/dL (7-18); CALCIUM 8.8 mg/dL (8.5-10.1); CREATININE 0.8 mg/dL (0.55-1.3); POTASSIUM 4.1 mmol/L (3.5-5.1)
--- NOTE | 2019-06-14 11:14 | PN ---
BHS COWS - Scale Resting Pulse: 0= [place] 80 or Below Sweatin= Chills/Flushing Restless Observation: 1= Difficult to Sit Still Pupil Size: 0= Normal to Room Light Bone or Joint Aches: 2= Severe Diffuse Aches Runny Nose/ Eye Tearin= Nasal Congestion GI Upset > 30mins: 0= None Tremor Observation of Outstretched Hands: 2= Slight Tremor Visible Yawning Observation: 2= >3x During Session Anxiety or Irritability: 2=Irritable/Anxious Goose Flesh Skin: 0=Smooth Skin COWS Score: 11 BHS Progress Note (SOAP) Subjective: sweats shakes agitation body aches Objective: 06/14/19 11:13 Vital Signs Temperature 96.3 F L 06/14/19 09:23 Pulse Rate 77 06/14/19 09:23 Respiratory Rate 20 06/14/19 09:23 Blood Pressure 136/92 06/14/19 09:23 O2 Sat by Pulse Oximetry (%) Laboratory Tests 06/14/19 06/14/19 08:15 08:15 WBC 8.4 RBC 4.38 Hgb 13.7 Hct 41.1 MCV 93.8 MCH 31.2 MCHC 33.3 RDW 13.5 Plt Count 287 MPV 8.9 Sodium 138 Potassium 4.1 Chloride 104 Carbon Dioxide 29 Anion Gap 5 L BUN 13.2 Creatinine 0.8 Est GFR (CKD-EPI)AfAm 125.04 Est GFR (CKD-EPI)NonAf 107.88 Random Glucose 80 Calcium 8.8 Total Bilirubin 0.4 AST 25 ALT 30 Alkaline Phosphatase 78 Total Protein 7.0 Albumin 3.5 labs noted aaox3 ambulating no acute distress Assessment: 06/14/19 11:13 withdrawals Plan: continue detox increase fluids
[2019-06-14] MEDS: THIAMINE HCL 100 MG TABLET (FP) PO SCH (22:54)
[2019-06-14] MEDS: MELATONIN 5 MG TABLETS PO PRN (22:55)
[2019-06-15] MEDS: diazePAM 5 MG TABLET PO PRN ×4 (06:08→22:27)
[2019-06-15] MEDS: SODIUM CHLORIDE NASAL SPRAY 44 ML BOTTLE NS SCH ×3 (07:19→22:27)
[2019-06-15] MEDS ORDERED: METHADONE HCL 10 MG TABLET (FOR DETOX USE ONLY) PO ONE (10:00)
[2019-06-15] MEDS: PRENATAL VITAMINS W/ FOLIC ACID TABLET (FP) PO SCH (10:30)
[2019-06-15] MEDS: cloNIDine HCL 0.1 MG TABLET PO PRN ×3 (10:31→22:27)
[2019-06-15] MEDS: METHOCARBAMOL 500 MG TABLET PO PRN (10:33)
[2019-06-15] MEDS: NICOTINE 14 MG/24 HOURS TOPICAL PATCH TD SCH (11:09)
--- NOTE | 2019-06-15 12:01 | PN ---
BHS COWS - Scale Resting Pulse: 0= [place] 80 or Below Sweatin= Chills/Flushing Restless Observation: 1= Difficult to Sit Still Pupil Size: 0= Normal to Room Light Bone or Joint Aches: 1= Mild Discomfort Runny Nose/ Eye Tearin= Runny Nose/Eyes GI Upset > 30mins: 0= None Tremor Observation of Outstretched Hands: 1= Tremor [place], Not Seen Yawning Observation: 1= 1-2x During Session Anxiety or Irritability: 2=Irritable/Anxious Goose Flesh Skin: 0=Smooth Skin COWS Score: 9 BHS Progress Note (SOAP) Subjective: sweats chills body aches anxiety Objective: 06/15/19 12:00 Vital Signs Temperature 97.4 F L 06/15/19 09:33 Pulse Rate 76 06/15/19 09:33 Respiratory Rate 18 06/15/19 09:33 Blood Pressure 140/83 06/15/19 09:33 O2 Sat by Pulse Oximetry (%) Laboratory Tests 06/14/19 06/14/19 06/14/19 08:15 08:15 08:15 WBC 8.4 RBC 4.38 Hgb 13.7 Hct 41.1 MCV 93.8 MCH 31.2 MCHC 33.3 RDW 13.5 Plt Count 287 MPV 8.9 Sodium 138 Potassium 4.1 Chloride 104 Carbon Dioxide 29 Anion Gap 5 L BUN 13.2 Creatinine 0.8 Est GFR (CKD-EPI)AfAm 125.04 Est GFR (CKD-EPI)NonAf 107.88 Random Glucose 80 Calcium 8.8 Total Bilirubin 0.4 AST 25 ALT 30 Alkaline Phosphatase 78 Total Protein 7.0 Albumin 3.5 RPR Titer Nonreactive labs noted aaox3 ambulating no acute distress Assessment: 06/15/19 12:00 withdrawal sx Plan: continue detox increase fluids nasal spray ordered
[2019-06-15] MEDS: THIAMINE HCL 100 MG TABLET (FP) PO SCH (22:27)
[2019-06-15] MEDS: MELATONIN 5 MG TABLETS PO PRN (22:27)
[2019-06-15] MEDS: NICOTINE POLACRILEX 2 MG GUM BUC PRN (22:29)
[2019-06-16] MEDS: METHOCARBAMOL 500 MG TABLET PO PRN ×2 (06:05→14:10)
[2019-06-16] MEDS: SODIUM CHLORIDE NASAL SPRAY 44 ML BOTTLE NS SCH ×3 (06:05→23:13)
[2019-06-16] MEDS: diazePAM 5 MG TABLET PO PRN ×2 (06:05→10:13)
[2019-06-16] MEDS ORDERED: METHADONE HCL 5 MG TABLET (FOR DETOX USE ONLY) ONE (08:58)
[2019-06-16] MEDS ORDERED: METHADONE HCL 10 MG TABLET (FOR DETOX USE ONLY) ONE (08:58)
[2019-06-16] MEDS ORDERED: METHADONE (DETOX) 10 MG, METHADONE (DETOX) 5 MG PO ONE (10:00)
[2019-06-16] MEDS: PRENATAL VITAMINS W/ FOLIC ACID TABLET (FP) PO SCH (10:10)
[2019-06-16] MEDS: NICOTINE 14 MG/24 HOURS TOPICAL PATCH TD SCH (10:11)
[2019-06-16] MEDS: IBUPROFEN 400 MG TABLET (FP) PO PRN ×2 (10:13→22:11)
[2019-06-16] MEDS: NICOTINE POLACRILEX 2 MG GUM BUC PRN (10:14)
--- NOTE | 2019-06-16 12:38 | PN ---
BHS COWS - Scale Resting Pulse: 2= [place] 101-120 Sweatin= Chills/Flushing Restless Observation: 1= Difficult to Sit Still Pupil Size: 1= Pupils >than Normal Bone or Joint Aches: 1= Mild Discomfort Runny Nose/ Eye Tearin= Nasal Congestion GI Upset > 30mins: 0= None Tremor Observation of Outstretched Hands: 1= Tremor [place], Not Seen Yawning Observation: 0= None Anxiety or Irritability: 1=Feels Anxious/Irritable Goose Flesh Skin: 0=Smooth Skin COWS Score: 9 BHS Progress Note (SOAP) Subjective: interrupted sleep, sweats , aches Objective: 06/16/19 12:38 Vital Signs Temperature 97.1 F L 06/16/19 09:46 Pulse Rate 103 H 06/16/19 09:46 Respiratory Rate 18 06/16/19 09:46 Blood Pressure 126/94 06/16/19 09:46 O2 Sat by Pulse Oximetry (%) Laboratory Tests 06/14/19 06/14/19 06/14/19 08:15 08:15 08:15 WBC 8.4 RBC 4.38 Hgb 13.7 Hct 41.1 MCV 93.8 MCH 31.2 MCHC 33.3 RDW 13.5 Plt Count 287 MPV 8.9 Sodium 138 Potassium 4.1 Chloride 104 Carbon Dioxide 29 Anion Gap 5 L BUN 13.2 Creatinine 0.8 Est GFR (CKD-EPI)AfAm 125.04 Est GFR (CKD-EPI)NonAf 107.88 Random Glucose 80 Calcium 8.8 Total Bilirubin 0.4 AST 25 ALT 30 Alkaline Phosphatase 78 Total Protein 7.0 Albumin 3.5 RPR Titer Nonreactive Assessment: 06/16/19 13:55 withdrawal sx's Plan: cont. detox increase fluids
[2019-06-16] MEDS: hydrOXYzine PAMOATE 25 MG CAPSULE (FP) PO PRN ×2 (14:10→22:12)
[2019-06-16] MEDS: MELATONIN 5 MG TABLETS PO PRN (22:09)
[2019-06-16] MEDS: THIAMINE HCL 100 MG TABLET (FP) PO SCH (22:09)
[2019-06-17] MEDS: SODIUM CHLORIDE NASAL SPRAY 44 ML BOTTLE NS SCH ×2 (06:00→15:51)
[2019-06-17] MEDS ORDERED: METHADONE HCL 10 MG TABLET (FOR DETOX USE ONLY) PO ONE (10:00)
[2019-06-17] MEDS: PRENATAL VITAMINS W/ FOLIC ACID TABLET (FP) PO SCH (10:30)
[2019-06-17] MEDS: hydrOXYzine PAMOATE 25 MG CAPSULE (FP) PO PRN (10:30)
[2019-06-17] MEDS: NICOTINE 14 MG/24 HOURS TOPICAL PATCH TD SCH (10:31)
--- NOTE | 2019-06-17 13:17 | PN ---
BHS COWS - Scale Resting Pulse: 0= [place] 80 or Below Sweatin= Chills/Flushing Restless Observation: 1= Difficult to Sit Still Pupil Size: 0= Normal to Room Light Bone or Joint Aches: 1= Mild Discomfort Runny Nose/ Eye Tearin= None GI Upset > 30mins: 0= None Tremor Observation of Outstretched Hands: 0= None Yawning Observation: 1= 1-2x During Session Anxiety or Irritability: 1=Feels Anxious/Irritable Goose Flesh Skin: 0=Smooth Skin COWS Score: 5 BHS Progress Note (SOAP) Subjective: c/o sweats, anxiety, headache. Objective: 06/17/19 13:15 Vital Signs 06/17/19 06/17/19 06:44 08:00 Temperature 96.8 F L 97.9 F Pulse Rate 61 98 H Respiratory 18 16 Rate Blood Pressure 110/63 145/80 Lab Results WBC 8.4 K/mm3 (4.0-10.0) 06/14/19 08:15 RBC 4.38 M/mm3 (4.00-5.60) 06/14/19 08:15 Hgb 13.7 GM/dL (11.7-16.9) 06/14/19 08:15 Hct 41.1 % (35.4-49) 06/14/19 08:15 MCV 93.8 fl (80-96) 06/14/19 08:15 MCHC 33.3 g/dl (32.0-35.9) 06/14/19 08:15 RDW 13.5 % (11.9-15.9) 06/14/19 08:15 Plt Count 287 K/MM3 (134-434) 06/14/19 08:15 Sodium 138 mmol/L (136-145) 06/14/19 08:15 Potassium 4.1 mmol/L (3.5-5.1) 06/14/19 08:15 Chloride 104 mmol/L (98-107) 06/14/19 08:15 Carbon Dioxide 29 mmol/L (21-32) 06/14/19 08:15 Anion Gap 5 MMOL/L (8-16) L 06/14/19 08:15 BUN 13.2 mg/dL (7-18) 06/14/19 08:15 Creatinine 0.8 mg/dL (0.55-1.3) 06/14/19 08:15 Random Glucose 80 mg/dL (74-106) 06/14/19 08:15 Calcium 8.8 mg/dL (8.5-10.1) 06/14/19 08:15 Labs noted. Assessment: 06/17/19 13:16 AOX3, in no acute respiratory distress. Full ROM, ambulating in the unit. withdrawal symptoms. For d/c tomorrow. Plan: continue detox. D/C in AM.
[2019-06-17 14:31] VITALS: BP 118/77; PULSE 103; TEMP 99.1
--- NOTE | 2019-06-17 16:00 | DS ---
[facility] Detox Discharge Summary Admission Date: 06/13/19 Discharge Date: 06/17/19 - History Present History: Cannabis Dependence, Opioid Dependence Additional Comments: Pt is supposed to complete his detox protocol tomorrow but requested to leave now because his family is coming over to pick him up today. Pt states, "i feel ok to go home with my parents". Pt denies any withdrawals signs at the moment. Pt is encouraged to follow-up with [facility] outpatient program and also to follow-up with his pmd. Pt verbalized understanding of the information given. Pt is alert and oriented x3 and in no respiratory distress. Pertinent Past History: h/o cannabis and heroin use disorder. - Physical Exam Results Vital Signs: Vital Signs Temperature 99.1 F 06/17/19 14:00 Pulse Rate 103 H 06/17/19 14:00 Respiratory Rate 18 06/17/19 14:00 Blood Pressure 118/77 06/17/19 14:00 O2 Sat by Pulse Oximetry (%) Vital Signs 06/17/19 06/17/19 08:00 14:00 Temperature 97.9 F 99.1 F Pulse Rate 98 H 103 H Respiratory 16 18 Rate Blood Pressure 145/80 118/77 Laboratory Last Values WBC 8.4 K/mm3 (4.0-10.0) 06/14/19 08:15 RBC 4.38 M/mm3 (4.00-5.60) 06/14/19 08:15 Hgb 13.7 GM/dL (11.7-16.9) 06/14/19 08:15 Hct 41.1 % (35.4-49) 06/14/19 08:15 MCV 93.8 fl (80-96) 06/14/19 08:15 MCH 31.2 pg (25.7-33.7) 06/14/19 08:15 MCHC 33.3 g/dl (32.0-35.9) 06/14/19 08:15 RDW 13.5 % (11.9-15.9) 06/14/19 08:15 Plt Count 287 K/MM3 (134-434) 06/14/19 08:15 MPV 8.9 fl (7.5-11.1) 06/14/19 08:15 Sodium 138 mmol/L (136-145) 06/14/19 08:15 Potassium 4.1 mmol/L (3.5-5.1) 06/14/19 08:15 Chloride 104 mmol/L (98-107) 06/14/19 08:15 Carbon Dioxide 29 mmol/L (21-32) 06/14/19 08:15 Anion Gap 5 MMOL/L (8-16) L 06/14/19 08:15 BUN 13.2 mg/dL (7-18) 06/14/19 08:15 Creatinine 0.8 mg/dL (0.55-1.3) 06/14/19 08:15 Est GFR (CKD-EPI)AfAm 125.04 06/14/19 08:15 Est GFR (CKD-EPI)NonAf 107.88 06/14/19 08:15 Random Glucose 80 mg/dL (74-106) 06/14/19 08:15 Calcium 8.8 mg/dL (8.5-10.1) 06/14/19 08:15 Total Bilirubin 0.4 mg/dL (0.2-1) 06/14/19 08:15 AST 25 U/L (15-37) 06/14/19 08:15 ALT 30 U/L (13-61) 06/14/19 08:15 Alkaline Phosphatase 78 U/L (45-117) 06/14/19 08:15 Total Protein 7.0 g/dl (6.4-8.2) 06/14/19 08:15 Albumin 3.5 g/dl (3.4-5.0) 06/14/19 08:15 RPR Titer Nonreactive (NONREACTIVE) 06/14/19 08:15 Labs noted. Pertinent Admission Physical Exam Findings: withdrawal symptoms. - Treatment Hospital Course: Detox Protocol Followed, Detoxed Safely, Responded well, Discharged Condition Good - Medication Discharge Medications: Ambulatory Orders NK [No Known Home Medication] 01/03/19 - Diagnosis (1) Uncomplicated opioid dependence Current Visit: Yes Status: Acute (2) Nicotine dependence Current Visit: Yes Status: Chronic Qualifiers: Nicotine product type: cigarettes Substance use status: uncomplicated Qualified Code(s): F17.210 - Nicotine dependence, cigarettes, uncomplicated (3) Cannabis dependence Current Visit: No Status: Acute (4) Kidney stone on right side Current Visit: No Status: Acute (5) Weight loss Current Visit: No Status: Acute - AMA Did Patient Leave Against Medical Advice: No
[2019-06-18] MEDS ORDERED: METHADONE HCL 5 MG TABLET (FOR DETOX USE ONLY) PO ONE (06:00)
== END 2019-06-17 17:00 | disposition home or self-care (01) | DRG 773 ==
LOC: YASAS 19:26 → Y6N 06-13 01:10
PROVIDERS: ADMIT Allergy & Immunology; ATTEND Allergy & Immunology
PROC: HZ2ZZZZ Detoxification Services for Substance Abuse Treatment (ICD-10-PCS; principal; 2019-06-13)
DX: F11.23 Opioid dependence with withdrawal (principal); F14.20 Cocaine dependence, uncomplicated; F12.20 Cannabis dependence, uncomplicated; F17.210 Nicotine dependence, cigarettes, uncomplicated; R63.4 Abnormal weight loss; Z87.442 Personal history of urinary calculi; Z86.19 Personal history of other infectious and parasitic diseases; Z59.0 Homelessness
CPT/HCPCS: 36415; 80053; 85027; 86593; 93005; 93010; J0735

== ENCOUNTER 2021-06-23 08:51 | Inpatient (IN) | payer OTHER ==
[2021-06-23 09:22] VITALS: BMI 23.8
[2021-06-23] MEDS ORDERED: MAGNESIUM CITRATE 300 ML BOTTLE PO PRN (10:02)
[2021-06-23] MEDS ORDERED: ONDANSETRON *ODT* 4 MG TABLET SL PRN (10:02)
[2021-06-23] MEDS ORDERED: IBUPROFEN 400 MG TABLET (FP) PO PRN (10:02)
[2021-06-23] MEDS ORDERED: MENTHOL/PHENOL 1 EACH UD MM PRN (10:02)
[2021-06-23] MEDS ORDERED: BISMUTH SUBSALICYLATE 262 MG/15 ML BTL PO PRN (10:02)
[2021-06-23] MEDS ORDERED: MAGNESIUM HYDROX 2400MG/30ML ORAL SUSPENSION 30 ML CUP PO PRN (10:02)
[2021-06-23] MEDS ORDERED: ACETAMINOPHEN 325 MG TABLET (FP) PO PRN ×2 (10:02)
[2021-06-23] MEDS ORDERED: NICOTINE 10 MG CARTRIDGE (INHALER) IH PRN (10:02)
[2021-06-23] MEDS ORDERED: MAG HYDROX/AL HYDROX/SIMETH 30 ML UNIT-DOSE CUP PO PRN (10:02)
[2021-06-23] MEDS ORDERED: PERMETHRIN 5% TOPICAL CREAM 60 GM TUBE ONE (10:07)
[2021-06-23] MEDS ORDERED: PERMETHRIN (NIX CREAM SCALP RINSE) 59 ML 1% BOTTLE TP ONE (10:15)
[2021-06-23] MEDS ORDERED: PERMETHRIN 5% TOPICAL CREAM 60 GM TUBE TP ONE (10:20)
[2021-06-23] MEDS: NICOTINE 14 MG/24 HOURS TOPICAL PATCH TD SCH (11:41)
[2021-06-23] MEDS: PRENATAL VITAMINS W/ FOLIC ACID TABLET (FP) PO SCH (11:41)
[2021-06-23] MEDS: hydrOXYzine PAMOATE 25 MG CAPSULE (FP) PO SCH ×3 (14:24→22:23)
[2021-06-23] MEDS: MELATONIN 5 MG TABLETS PO SCH (22:23)
[2021-06-23] MEDS: METHOCARBAMOL 500 MG TABLET PO PRN (22:23)
[2021-06-23] MEDS: THIAMINE HCL 100 MG TABLET (FP) PO SCH (22:23)
[2021-06-24] MEDS: hydrOXYzine PAMOATE 25 MG CAPSULE (FP) PO SCH ×5 (06:00→22:55)
[2021-06-24] MEDS: METHOCARBAMOL 500 MG TABLET PO PRN ×2 (10:49→17:20)
[2021-06-24] MEDS: PRENATAL VITAMINS W/ FOLIC ACID TABLET (FP) PO SCH (10:49)
[2021-06-24] MEDS: NICOTINE 14 MG/24 HOURS TOPICAL PATCH TD SCH (10:50)
[2021-06-24] MEDS ORDERED: methaDONE HCL 10 MG TABLET (FOR DETOX USE ONLY) ONE (10:51)
[2021-06-24] MEDS: THIAMINE HCL 100 MG TABLET (FP) PO SCH (22:55)
[2021-06-24] MEDS: MELATONIN 5 MG TABLETS PO SCH (22:55)
[2021-06-25] MEDS: METHOCARBAMOL 500 MG TABLET PO PRN ×2 (02:54→09:55)
[2021-06-25] MEDS: hydrOXYzine PAMOATE 25 MG CAPSULE (FP) PO SCH ×3 (06:07→13:01)
[2021-06-25] MEDS: PRENATAL VITAMINS W/ FOLIC ACID TABLET (FP) PO SCH (09:55)
[2021-06-25] MEDS ORDERED: methaDONE HCL 10 MG TABLET (FOR DETOX USE ONLY) PO ONE (10:00)
[2021-06-25] MEDS: NICOTINE 14 MG/24 HOURS TOPICAL PATCH TD SCH (10:00)
[2021-06-25 13:30] VITALS: BP 148/91; PULSE 80; TEMP 99.8
[2021-06-27] MEDS ORDERED: methaDONE HCL 10 MG TABLET (FOR DETOX USE ONLY) PO ONE (10:00)
== END 2021-06-25 14:37 | disposition left against medical advice (07) | DRG 770 ==
LOC: YASAS 08:51 → Y3N 09:48 → Y6N 10:02
PROVIDERS: ADMIT Allergy & Immunology; ATTEND Allergy & Immunology
PROC: HZ2ZZZZ Detoxification Services for Substance Abuse Treatment (ICD-10-PCS; principal; 2021-06-23)
DX: F11.23 Opioid dependence with withdrawal (principal); F17.210 Nicotine dependence, cigarettes, uncomplicated; B86 Scabies; Z87.442 Personal history of urinary calculi; Z59.02 Unsheltered homelessness
CPT/HCPCS: 36415; 80053; 83690; 85025; 86780; 99282-25; C9803; J0131; U0003; U0005

== ENCOUNTER 2021-09-20 20:29 | Emergency (ER) | payer OTHER ==
[2021-09-20 20:52] VITALS: BP 144/77; PULSE 69; TEMP 97.9; BMI 22.5
== END 2021-09-20 21:51 | disposition home or self-care (01) ==
LOC: JER 20:29
DX: F11.20 Opioid dependence, uncomplicated (principal); F14.20 Cocaine dependence, uncomplicated
CPT/HCPCS: 99283-25; C9803; U0003; U0005

== ENCOUNTER 2021-09-20 22:02 | Inpatient (IN) | payer OTHER ==
[2021-09-20] MEDS ORDERED: ACETAMINOPHEN 325 MG TABLET (FP) PO PRN (23:19)
[2021-09-20] MEDS ORDERED: MAGNESIUM HYDROX 2400MG/30ML ORAL SUSPENSION 30 ML CUP PO PRN (23:19)
[2021-09-20] MEDS ORDERED: MAG HYDROX/AL HYDROX/SIMETH 30 ML UNIT-DOSE CUP PO PRN (23:19)
[2021-09-20] MEDS ORDERED: MAGNESIUM CITRATE 300 ML BOTTLE PO PRN (23:19)
[2021-09-20] MEDS ORDERED: BISMUTH SUBSALICYLATE 524 MG/30 ML PO PRN (23:19)
[2021-09-20] MEDS ORDERED: ONDANSETRON *ODT* 4 MG TABLET SL PRN (23:19)
[2021-09-20] MEDS ORDERED: NICOTINE POLACRILEX 2 MG GUM BUC PRN (23:19)
[2021-09-20] MEDS ORDERED: methaDONE HCL 10 MG TABLET (FOR DETOX USE ONLY) PO ONE (23:19)
[2021-09-20] MEDS ORDERED: MENTHOL/PHENOL 1 EACH UD MM PRN (23:19)
[2021-09-21 00:14] VITALS: BMI 23.1
[2021-09-21] MEDS ORDERED: METHOCARBAMOL 500 MG TABLET ONE (02:35)
[2021-09-21] MEDS ORDERED: ONDANSETRON *ODT* 4 MG TABLET ONE (02:35)
[2021-09-21] MEDS ORDERED: cloNIDine HCL 0.1 MG TABLET ONE (02:35)
[2021-09-21] MEDS: METHOCARBAMOL 500 MG TABLET PO PRN ×3 (02:45→22:51)
[2021-09-21] MEDS: cloNIDine HCL 0.1 MG TABLET PO PRN ×2 (02:45→20:46)
[2021-09-21] MEDS: IBUPROFEN 400 MG TABLET (FP) PO PRN ×2 (10:58→22:51)
[2021-09-21] MEDS: diazePAM 5 MG TABLET PO PRN ×3 (10:58→22:51)
[2021-09-21] MEDS: PRENATAL VITAMINS W/ FOLIC ACID TABLET (FP) PO SCH (10:59)
[2021-09-21] MEDS: NICOTINE 14 MG/24 HOURS TOPICAL PATCH TD SCH (11:01)
[2021-09-21] MEDS: MELATONIN 5 MG TABLETS PO SCH (22:49)
[2021-09-21] MEDS: THIAMINE HCL 100 MG TABLET (FP) PO SCH (22:49)
[2021-09-22] MEDS: cloNIDine HCL 0.1 MG TABLET PO PRN ×2 (02:36→11:05)
[2021-09-22] MEDS: diazePAM 5 MG TABLET PO PRN ×4 (05:18→22:48)
[2021-09-22] MEDS ORDERED: methaDONE HCL 10 MG TABLET (FOR DETOX USE ONLY) ONE (09:51)
[2021-09-22] MEDS ORDERED: methaDONE HCL 10 MG TABLET (FOR DETOX USE ONLY) PO ONE ×2 (10:00)
[2021-09-22 10:24] LABS: HEMATOCRIT 41.7 % (35.4-49); HEMOGLOBIN 13.6 GM/dL (11.7-16.9); MCH 30.4 pg (25.7-33.7); MCHC 32.7 g/dl (32.0-35.9); MEAN PLT VOLUME 8.3 fl (7.5-11.1); PLATELET COUNT 261 10^3/uL (134-434); RBC 4.48 M/mm3 (4.00-5.60); RDW 13.9 % (11.9-15.9); WHITE BLOOD COUNT 7.1 K/mm3 (4.0-10.0)
[2021-09-22 10:32] LABS: ALBUMIN 3.1 g/dl (3.4-5.0)
[2021-09-22 10:33] LABS: BLOOD UREA NITROGEN 16.1 mg/dL (7-18); CALCIUM 9.1 mg/dL (8.5-10.1); CREATININE 0.9 mg/dL (0.55-1.3)
[2021-09-22 10:35] LABS: BILIRUBIN,TOTAL 0.5 mg/dL (0.2-1); TOT PROT 6.9 g/dl (6.4-8.2)
[2021-09-22] MEDS: METHOCARBAMOL 500 MG TABLET PO PRN ×2 (11:02→22:50)
[2021-09-22] MEDS: NICOTINE 14 MG/24 HOURS TOPICAL PATCH TD SCH (11:02)
[2021-09-22] MEDS: PRENATAL VITAMINS W/ FOLIC ACID TABLET (FP) PO SCH (11:02)
[2021-09-22] MEDS: amLODIPine BESYLATE 5 MG TABLET (FP) PO SCH (14:46)
[2021-09-22] MEDS: IBUPROFEN 400 MG TABLET (FP) PO PRN (17:34)
[2021-09-22] MEDS: THIAMINE HCL 100 MG TABLET (FP) PO SCH (22:46)
[2021-09-22] MEDS: MELATONIN 5 MG TABLETS PO SCH (22:46)
[2021-09-23] MEDS: diazePAM 5 MG TABLET PO PRN ×5 (02:59→22:31)
[2021-09-23] MEDS: amLODIPine BESYLATE 5 MG TABLET (FP) PO SCH (09:24)
[2021-09-23] MEDS: METHOCARBAMOL 500 MG TABLET PO PRN (09:24)
[2021-09-23] MEDS: NICOTINE 14 MG/24 HOURS TOPICAL PATCH TD SCH (09:26)
[2021-09-23] MEDS: PRENATAL VITAMINS W/ FOLIC ACID TABLET (FP) PO SCH (09:26)
[2021-09-23] MEDS ORDERED: methaDONE HCL 10 MG TABLET (FOR DETOX USE ONLY) PO ONE (10:00)
[2021-09-23] MEDS: ACETAMINOPHEN 325 MG TABLET (FP) PO PRN (17:59)
[2021-09-23] MEDS: THIAMINE HCL 100 MG TABLET (FP) PO SCH (22:31)
[2021-09-23] MEDS: MELATONIN 5 MG TABLETS PO SCH (22:31)
[2021-09-24] MEDS: diazePAM 5 MG TABLET PO PRN ×4 (04:06→22:27)
[2021-09-24] MEDS: ACETAMINOPHEN 325 MG TABLET (FP) PO PRN ×2 (04:08→12:46)
[2021-09-24] MEDS ORDERED: methaDONE HCL 10 MG TABLET (FOR DETOX USE ONLY) PO ONE (10:00)
[2021-09-24] MEDS: METHOCARBAMOL 500 MG TABLET PO PRN ×2 (10:22→17:41)
[2021-09-24] MEDS: amLODIPine BESYLATE 5 MG TABLET (FP) PO SCH (10:22)
[2021-09-24] MEDS: PRENATAL VITAMINS W/ FOLIC ACID TABLET (FP) PO SCH (10:22)
[2021-09-24] MEDS: NICOTINE 14 MG/24 HOURS TOPICAL PATCH TD SCH (10:23)
[2021-09-24] MEDS: MELATONIN 5 MG TABLETS PO SCH (22:27)
[2021-09-24] MEDS: THIAMINE HCL 100 MG TABLET (FP) PO SCH (22:27)
[2021-09-25] MEDS: ACETAMINOPHEN 325 MG TABLET (FP) PO PRN (06:58)
[2021-09-25] MEDS: diazePAM 5 MG TABLET PO PRN ×3 (06:59→14:15)
[2021-09-25] MEDS ORDERED: methaDONE HCL 10 MG TABLET (FOR DETOX USE ONLY) PO ONE (10:00)
[2021-09-25] MEDS: PRENATAL VITAMINS W/ FOLIC ACID TABLET (FP) PO SCH (10:04)
[2021-09-25] MEDS: METHOCARBAMOL 500 MG TABLET PO PRN (10:04)
[2021-09-25] MEDS: amLODIPine BESYLATE 5 MG TABLET (FP) PO SCH (10:04)
[2021-09-25] MEDS: IBUPROFEN 400 MG TABLET (FP) PO PRN (10:06)
[2021-09-25] MEDS: NICOTINE 14 MG/24 HOURS TOPICAL PATCH TD SCH (11:04)
[2021-09-25 13:03] VITALS: BP 142/90; PULSE 102; TEMP 98.1
== END 2021-09-25 16:14 | disposition left against medical advice (07) | DRG 770 ==
LOC: YASAS 22:02 → Y6N 09-21 09:49
PROVIDERS: ADMIT Allergy & Immunology; ATTEND Allergy & Immunology
PROC: HZ2ZZZZ Detoxification Services for Substance Abuse Treatment (ICD-10-PCS; principal; 2021-09-21)
DX: F11.23 Opioid dependence with withdrawal (principal); F14.20 Cocaine dependence, uncomplicated; F10.10 Alcohol abuse, uncomplicated; F12.20 Cannabis dependence, uncomplicated; F17.210 Nicotine dependence, cigarettes, uncomplicated; I10 Essential (primary) hypertension; B18.2 Chronic viral hepatitis C; Z87.442 Personal history of urinary calculi; Z56.0 Unemployment, unspecified; Z59.00 Homelessness unspecified
CPT/HCPCS: 36415; 80053; 85027; 86780; 93005; 93010; C9803; J0735; Q0162; U0003; U0005